=== PATIENT | male | born 1950 ===

== ENCOUNTER 2020-04-06 07:41 | Outpatient (REF) | payer MEDICARE, SELFPAY ==
--- NOTE | ~2020-04-06 | CT_ITS ---
EXAMINATION: CT HEAD WITHOUT CONTRAST. CT MASTOID CLINICAL INFORMATION: Tinnitus. COMPARISON: None. TECHNIQUE: 5 mm thin axial and reformatted 2 mm thin sagittal and coronal images of brain were obtained. Subsequently 0.6 mm thin axial and reformatted 0.6 mm thin sagittal and coronal images of brain were obtained. This CT examination was performed using dose optimization techniques as appropriate, variously including the following: *Automated exposure control *Adjustment of mA and/or kV according to patient size (this includes techniques or standardized protocols for targeted exams where dose is matched to indication/reason for exam; i.e. extremities or head) *Use of iterative reconstruction technique DLP: 1154 mGy-cm. FINDINGS: Brain: There is no evidence of acute intracranial hemorrhage or territorial infarction. No abnormal mass effect or midline shift is seen. Pleitez to white matter differentiation is well preserved. No extra-axial fluid collections are identified. The ventricles are normal in size. There is no abnormal attenuation within the brain parenchyma. There is a focal calcification in the pineal gland within normal limits. There is a midline round 5 mm calcification inferior to the fourth ventricle. The osseous structures and soft tissues are normal. The mastoid air cells and visualized portions of the paranasal sinuses are well aerated. Mastoid: There is normal aeration of bilateral mastoid sinuses without mucoperiosteal thickening or air-fluid levels. The bony cortex is intact. There is normal symmetry of middle ear and the middle ear ossicles without any soft tissue mass or fluid collection. Bilateral internal auditory canals, semicircular canals and the cochlear turns appears symmetrical. The bony cortex of the internal ear is normal. The roof of the epitympanum is normal. The bony canal of the internal auditory canal and the jugular veins are symmetrical and normal. There is mild reduction in bilateral TM joint spaces. No bony cortex abnormality or spurring is seen. Visualized bilateral parotid glands are symmetrical. CT/CT head/brain wo con IMPRESSION: No acute intracranial process seen. Nonspecific round midline calcification inferior to the fourth ventricle of undetermined etiology. Recommend MRI brain/IAC protocol for further evaluation. Unremarkable bilateral symmetrical temporal lobes and mastoid sinuses.
== END 2020-04-06 07:42 | disposition home or self-care (01) ==
LOC: HO.CT 07:41
PROVIDERS: PCP Internal Medicine; Visit Provider Internal Medicine
DX: H81.90 Unspecified disorder of vestibular function, unspecified ear (principal); H93.19 Tinnitus, unspecified ear
CPT/HCPCS: 70450; 70481

== ENCOUNTER 2020-04-17 09:04 | Outpatient (REF) | payer MEDICARE, SELFPAY ==
--- NOTE | ~2020-04-17 | MR_ITS ---
EXAMINATION: MR BRAIN WITHOUT AND WITH CONTRAST CLINICAL INFORMATION: Evaluate for brain lesion.. COMPARISON: CT from 04/06/2020. TECHNIQUE: Multiplanar, multisequential imaging was obtained without and with intravenous contrast. Intravenous contrast: Gadavist 8 mL. Slightly limited study with motion artifacts. FINDINGS: No diffusion abnormality is seen. No brain parenchymal signal abnormality is seen. The ventricles are normal in size. No mass effect or midline shift is evident. No extra-axial fluid collections are noted. The brainstem and cerebellum are normal. There is no abnormal parenchymal or leptomeningeal enhancement. The gradient acquisition is normal. The VII and VIII cranial nerve complexes are normal in course and caliber. No signal abnormality is visualized within the inner ear structures on the precontrast axial T1-weighted sequence. Fluid signal is preserved within the cochlea, semicircular canals, and vestibule on the high-resolution axial FIESTA sequence. No cerebellopontine angle lesion is noted. There is no abnormal labyrinthine or intracanalicular enhancement on postcontrast imaging. The craniovertebral junction, marrow signal, and midline structures are normal. No inferior fourth ventricular lesion evident at the site of presumed cord plexus calcification. The visualized portions of the major intracranial flow voids at the level of the [place] are preserved. The dural venous sinus flow voids are maintained. There is a mild amount of fluid in the right mastoid air cells. Mild mucosal thickening in the paranasal sinuses. MR/MR head/brain wo/w con IMPRESSION: No retrocochlear pathology. Normal MRI of the brain. Calcification described on the prior CT exam presumably represents normal choroid plexus calcification.
[2020-04-17 09:39] LABS: Blood Urea Nitrogen 14 mg/dL (9-16); Estimated Glomerular Filt Rate > 60
== END 2020-04-17 09:05 | disposition home or self-care (01) ==
LOC: HO.MRI 09:04
PROVIDERS: Visit Provider Psychiatry & Neurology Neurology
DX: G93.9 Disorder of brain, unspecified (principal)
CPT/HCPCS: 36415; 70553; 82565; 84520; A9585

== ENCOUNTER 2020-07-17 10:30 | Outpatient (REF) | payer MEDICARE, SELFPAY ==
--- NOTE | ~2020-07-17 | US_ITS ---
EXAMINATION: US SCROTUM CLINICAL INFORMATION: Follicular cyst of the skin and subcutaneous tissues. COMPARISON: None TECHNIQUE: A sonogram of the scrotum was performed assessing paulson-scale appearance and color Doppler flow. Spectral Doppler analysis of the arterial and venous flow were performed in the testes bilaterally. FINDINGS: RIGHT: Right testicle measures 5.2 x 2.5 x 4.4 cm, volume 30.0 mL. No focal testicular parenchymal lesions are visualized. Spectral Doppler analysis of the arterial and venous flow is normal in the right testis. Right epididymal head is normal in size. No right varicocele is seen. There is a small right hydrocele. Right epididymal Doppler flow is normal. LEFT: Left testicle measures 5.1 x 2.5 x 3.7 cm, volume 24.3 mL. No focal testicular parenchymal lesions are visualized. Spectral Doppler analysis of the arterial and venous flow is normal in the left testis. There is a 3.4 x 1.4 x 3 cm cyst in the body of the left epididymis. No left varicocele or hydrocele is seen. Left epididymal Doppler flow is normal. US/US scrotum IMPRESSION: 3.4 x 1.4 x 3 cm cyst in the body of the left epididymis. Small right hydrocele.
== END 2020-07-17 10:31 | disposition home or self-care (01) ==
LOC: HO.HMGCX 10:30
PROVIDERS: PCP Internal Medicine; Visit Provider Internal Medicine
DX: L72.9 Follicular cyst of the skin and subcutaneous tissue, unspecified (principal)
CPT/HCPCS: 76870

== ENCOUNTER 2020-10-29 07:12 | Outpatient (REF) | payer MEDICARE, SELFPAY ==
[2020-10-29 07:54] LABS: MANUAL DIFF FLAG NO
[2020-10-29 07:56] LABS: Basophils Percent Auto 0.7 % (0-2); Eosinophils Absolute Auto 0.2 X10*3/uL (0.0-0.4); Eosinophils Percent Auto 4.3 % (0-4); Hematocrit 42.2 % (42-52); Hemoglobin 14.1 g/dl (14.0-18.0); Imm Gran Abs Auto 0.01 X10*3/uL (0.00-0.03); Imm Gran Pct Auto 0.2 % (0.0-0.4); Lymphocytes Absolute Auto 1.3 X10*3/uL (1.2-4.9); Lymphocytes Percent Auto 29.2 % (20-40); Mean Corpuscular HGB Conc 33.4 g/dl (31.0-36.0); Mean Corpuscular Hemoglobin 29.9 pg (27.0-33.0); Mean Corpuscular Volume 89.6 fL (80-98); Monocytes Absolute Auto 0.5 X10*3/uL (0.1-1.2); Monocytes Percent Auto 11.5 % (2-11); Neutrophils Absolute Auto 2.4 X10*3/uL (2.0-8.3); Neutrophils Percent Auto 54.1 % (45-73); Platelet Count 195 X10*3/uL (160-400); Red Blood Count 4.71 X10*6/uL (4.60-5.80); Red Cell Distribution Width 11.8 % (11.0-16.0); White Blood Count 4.5 X10*3/uL (4.8-10.8)
[2020-10-29 08:17] LABS: Alanine Aminotransferase 18 U/L (0-40); Albumin Level 3.9 g/dL (3.5-5.0); Alkaline Phosphatase 61 U/L (39-117); Anion Gap 10 (12-20); Aspartate Amino Transferase 20 U/L (5-37); Bilirubin Total 1.6 mg/dL (0.0-1.0); Blood Urea Nitrogen 16 mg/dL (9-16); Carbon Dioxide 29 mmol/L (22-29); Chloride 106 mmol/L (96-108); Cholesterol 183 mg/dL; Estimated Glomerular Filt Rate > 60; Glucose Fasting 97 mg/dL (60-99); HDL Cholesterol 46 mg/dL; LDL Cholesterol Calculated 125 mg/dl; Potassium 4.3 mmol/L (3.3-5.1); Sodium 141 mmol/L (135-145); Total Protein 6.5 g/dL (6.5-8.0); Triglycerides 63 mg/dL
[2020-10-29 08:38] LABS: Prostate Specific Antigen Scr 0.82 ng/mL (<0.05-4.0)
== END 2020-10-29 07:13 | disposition home or self-care (01) ==
LOC: HO.LAB 07:12
PROVIDERS: PCP Internal Medicine; Visit Provider Internal Medicine
DX: Z00.00 Encounter for general adult medical examination without abnormal findings (principal); Z12.5 Encounter for screening for malignant neoplasm of prostate; E11.9 Type 2 diabetes mellitus without complications; R35.1 Nocturia
CPT/HCPCS: 36415; 80053; 80061; 84153; 85025

== ENCOUNTER → 2020-12-25 10:27 | Outpatient (BNVA) | payer MEDICARE, SELFPAY | PROVIDERS: PCP Internal Medicine; Visit Provider Urology | DX: L72.9 Follicular cyst of the skin and subcutaneous tissue, unspecified (principal) | CPT/HCPCS: 99202 ==

== ENCOUNTER 2021-02-18 09:03 | Outpatient (REF) | payer MEDICARE, SELFPAY | END 2021-02-18 09:04 | disposition home or self-care (01) | LOC: HO.LAB 09:03 | PROVIDERS: Visit Provider Internal Medicine | DX: Z20.822 Contact with and (suspected) exposure to COVID-19 (principal) | CPT/HCPCS: C9803; U0003; U0005 ==

== ENCOUNTER → 2021-12-23 08:23 | Outpatient (BNVA) | payer MEDICARE, SELFPAY | PROVIDERS: PCP Internal Medicine; Visit Provider Urology | DX: N40.1 Benign prostatic hyperplasia with lower urinary tract symptoms (principal); R35.1 Nocturia | CPT/HCPCS: 99212 ==

== ENCOUNTER 2022-07-27 07:03 | Outpatient (REF) | payer MEDICARE, SELFPAY ==
[2022-07-27 07:12] LABS: MANUAL DIFF FLAG NO
[2022-07-27 07:50] LABS: Basophils Percent Auto 0.4 % (0-2); Eosinophils Absolute Auto 0.2 X10*3/uL (0.0-0.4); Eosinophils Percent Auto 3.5 % (0-4); Hematocrit 45.1 % (42.0-52.0); Hemoglobin 15.1 g/dl (14.0-18.0); Imm Gran Abs Auto 0.01 X10*3/uL (0.00-0.03); Imm Gran Pct Auto 0.2 % (0.0-0.4); Lymphocytes Absolute Auto 1.3 X10*3/uL (1.2-4.9); Lymphocytes Percent Auto 27.2 % (20-40); Mean Corpuscular HGB Conc 33.5 g/dl (31.0-36.0); Mean Corpuscular Hemoglobin 30.4 pg (27.0-33.0); Mean Corpuscular Volume 90.9 fL (80.0-98.0); Mean Platelet Volume 11.1 fL (9.4-12.4); Monocytes Absolute Auto 0.6 X10*3/uL (0.1-1.2); Neutrophils Absolute Auto 2.7 x10*3/uL (2.0-8.3); Neutrophils Percent Auto 55.7 % (45-73); Platelet Count 192 X10*3/uL (160-400); Red Blood Count 4.96 X10*6/uL (4.60-5.80); Red Cell Distribution Width 11.9 % (11.0-16.0); White Blood Count 4.9 X10*3/uL (4.8-10.8)
[2022-07-27 08:25] LABS: Alanine Aminotransferase 21 U/L (0-40); Alkaline Phosphatase 50 U/L (39-117); Anion Gap 9 (12-20); Aspartate Amino Transferase 22 U/L (5-37); Bilirubin Total 1.4 mg/dL (0.0-1.0); Blood Urea Nitrogen 13 mg/dL (9-16); Calcium 9.1 mg/dL (8.4-10.2); Carbon Dioxide 33 mmol/L (22-29); Chloride 105 mmol/L (96-108); Cholesterol 183 mg/dL; Estimated Glomerular Filt Rate > 60; Glucose Random 93 mg/dL (60-115); HDL Cholesterol 42 mg/dL; LDL Cholesterol Calculated 130 mg/dl; Potassium 4.5 mmol/L (3.3-5.1); Sodium 142 mmol/L (135-145); Total Protein 6.6 g/dL (6.5-8.0); Triglycerides 56 mg/dL
[2022-07-27 08:41] LABS: Prostate Specific Antigen Scr 0.86 ng/mL (<0.05-4.0)
== END 2022-07-27 07:04 | disposition home or self-care (01) ==
LOC: HO.LAB 07:03
PROVIDERS: PCP Internal Medicine; Visit Provider Internal Medicine
DX: Z00.00 Encounter for general adult medical examination without abnormal findings (principal); Z12.5 Encounter for screening for malignant neoplasm of prostate; Z13.89 Encounter for screening for other disorder; Z71.89 Other specified counseling; Z86.010 Personal history of colon polyps; E78.00 Pure hypercholesterolemia, unspecified
CPT/HCPCS: 36415; 80053; 80061; 84153; 85025

== ENCOUNTER 2022-10-12 08:26 | Outpatient (AMB) | payer MEDICARE, SELFPAY ==
--- NOTE | 2022-10-12 08:34 | A.OFFVIS_ITS ---
Intake Vital Signs 10/12/22 08:39 Height 6 ft Weight 170 lb BMI 23.1 BP 130/78 Blood Pressure Location Lt brachial Position Sitting Pulse 55 Intake Visit Reasons: colonoscopy screening Intake Note: Patient 3rd pre Colonoscopy screening. 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 Katz 2017 2017- tubulovillios- rectal/ adenoma and 3 tubular adenoma No GI or general complaints He is retired, he has a normal bowel pattern. He has very healthy diet. No cardiac or respiratory issues No nausea, vomiting, hematemesis, hematochezia abdominal pain fever or chills PFSH Surgical History Hx of colonoscopy No history of previous surgery Family History Mother No problems noted. Father No problems noted. Social History Housing: House Alcohol intake: current Alcohol intake frequency: 0-2 drinks per day Patient Tobacco Use Status: Never used Tobacco e-Cigarette/Vaping Use: Never Used Second Hand Smoke Exposure: No service: No Current occupational status: retired Review of Systems Const All systems reviewed & are unremarkable except as noted in HPI and below Card Denies chest pain and Denies dyspnea Resp Denies dyspnea GI Denies abdominal pain, Denies hematochezia and Denies change in bowel habits Physical Exam Vital Signs: Last Vital Signs Pulse 55 10/12/22 08:39 BP 130/78 10/12/22 08:39 BMI result Body Mass Index 23.1 Const General: cooperative, healthy appearing, comfortable and no acute distress Orientation/consciousness: patient oriented x3 Limitations: no limitations Eyes Sclerae: sclerae normal Resp Effort & Inspection: normal respiratory effort and able to speak in complete sentences Auscultation: clear to auscultation bilaterally, no rales, no rhonchi and no wheezes Cardio Rate: regular rate Rhythm: regular rhythm Heart sounds: S1 normal heart sound present and S2 normal heart sound present GI Palpation (GI): Soft to palpation and nontender Auscultation: normal bowel sounds Skin General skin exam: no rashes or lesions noted Neuro General: patient oriented x3 Extrem General: Yes full ROM Psych Appearance: grossly normal and well kempt Mental Status: mental status grossly normal Speech and movement: Normal speech and movement present and Clear speech present Affect: normal affect Attitude: cooperative Thought process: Normal thought process present Thought content: Normal thought content present Insight: Good insight present (Psych) Judgement: Good judgement present (Psych) Assessment & Plan Assessment & Plan (1) Cecal polyp: Comment: 2018 Code(s): K63.5 - Polyp of colon Plan: Polyp surveillance colonoscopy (2) Tubulovillous adenoma polyp of rectum: Comment: Reviewed previous colonoscopy/pathology 2018 discusswd polyp, [id number] recommendation Code(s): D12.8 - Benign neoplasm of rectum Plan MG - polyp surveillance colonoscopy 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 20 mg (4 x 5 mg) PO ONCE 1 day 4 tabs 0RF colonoscopy prep Z12.11 - Encounter for screening for malignant neoplasm of colon polyethylene glycol 3350 (Miralax) Take as directed by mouth the day before your procedure. 238 grams PO ONCE 1 day PRN 238 grams 0RF laxative effect Patient Instructions: Pleasant healthy, 71-year-old Gent personal history of colon polyps, he has no GI or general complaints takes no medications MiraLax Gatorade split prep, instructions given Reviewed procedure, indications, need for escorted due to anesthesia Encouraged to call questions or concern Appreciate the opportunity assist in the care the patient Coding Level of Care Code New Pt Level 3 (27627) Diagnoses Cecal polyp K63.5 Tubulovillous adenoma polyp of rectum D12.8 Time Spent (min) 30
[2022-10-12 08:39] VITALS: BP 130/78; PULSE 55; BMI 23.1
== END 2022-10-12 09:58 | disposition home or self-care (01) ==
PROVIDERS: PCP Internal Medicine; Visit Provider Physician Assistant
DX: K63.5 Polyp of colon (principal)
CPT/HCPCS: 99203

== ENCOUNTER → 2022-10-12 08:26 | Outpatient (BNVA) | payer MEDICARE, SELFPAY | PROVIDERS: PCP Internal Medicine; Visit Provider Physician Assistant | DX: Z87.19 Personal history of other diseases of the digestive system (principal); Z86.010 Personal history of colon polyps | CPT/HCPCS: 99202 ==

== ENCOUNTER 2023-01-30 08:57 | Day surgery (SDC) | payer MEDICARE, SELFPAY ==
--- NOTE | 2023-01-27 12:11 | HO.ANESPROP2 ---
Documented by User: Yajaira Marcial NP 01/27/23 12:12 HPI - Anesthesia Eval Consult details Narrative: 72yo M for Colonoscopy [facility] Active Problems Active Problems: All Active Problems (Updated 10/12/22 @ 09:24 by Kym Bonner PA-C) Tubulovillous adenoma polyp of rectum (Acute) Cecal polyp (Acute) Encounter for screening colonoscopy (Acute) Nocturia associated with benign prostatic hyperplasia (Acute) Physical exam (Acute) Skin lesion (Acute) Scrotal cyst (Acute) Headache (Acute) Sinusitis (Acute) Labyrinthine disorder (Acute) Family History Family History Mother No problems noted. Father No problems noted. Surgical History Surgical History Hx of colonoscopy No history of previous surgery Social History Social History Housing: House Alcohol intake: current Alcohol intake frequency: 0-2 drinks per day Patient Tobacco Use Status: Never used Tobacco e-Cigarette/Vaping Use: Never Used Second Hand Smoke Exposure: No Advance Directives: No Advance Directives Information Provided: Yes service: No Current occupational status: retired Meds Allergies Allergy/AdvReac Type Severity Reaction Status Date / Time latex [LATEX] Allergy Unknown BOTHERS PT Verified 10/12/22 08:34 WHEN EXPOSED A LOT Assessment and Plan Assessment Anesthesia Assessment: Chart Reviewed Documented by User: Solange Ferguson MD 01/30/23 10:07 [facility] Family History Family History Mother No problems noted. Father No problems noted. Family history of problems with anesthesia: No Surgical History Surgical History Hx of colonoscopy No history of previous surgery History of Problems with Anesthesia: No Social History Social History Housing: House Alcohol intake: current Alcohol intake frequency: 0-2 drinks per day Patient Tobacco Use Status: Never used Tobacco e-Cigarette/Vaping Use: Never Used Second Hand Smoke Exposure: No Advance Directives: No Advance Directives Information Provided: Yes service: No Current occupational status: retired Meds Allergies Allergy/AdvReac Type Severity Reaction Status Date / Time latex [LATEX] Allergy Unknown BOTHERS PT Verified 10/12/22 08:34 WHEN EXPOSED A LOT Exam Airway Mallampati Class: II TM Dist: >3cm Neck ROM: Full Heart: rrr Lungs: cta Assessment and Plan Assessment Anesthesia Assessment: Anesthesia Plan Discussed Final Anesthetic Review Family History of Problems with Anesthesia: No History of Problems with Anesthesia: No NPO: Yes ASA Class: II Final Preanesthetic Review: No Changes in Pt Med Stat, Meds/Allgs Chart Reviewed and Consent Obtained/Reviewed Patient Risk: Intermediate Procedure Risk: Intermediate Anesthetic Plan Anesthetic Plan: MAC: Disposition: Standard PACU
--- NOTE | 2023-01-30 09:23 | P.HPSUR_ITS ---
Pre-Procedural Eval Section A Date of Service: 01/30/23 The patient is an INPATIENT: No The History & Physical has been completed within 30 days and I have reviewed it.: No Section B Chief Complaint: Surveillance for colon polyps Relevant Family History (Specify if Yes): No Relevant Social History: None Present Medications: see Short Stay Collaborative assessment Medical History: Significant History (Benign prostatic hypertrophy) History of Previous Operations: Relevant previous surgery/procedure and date(s) (History of colonoscopy) Allergies: Allergies Allergy/AdvReac Type Severity Reaction Status Date / Time latex [LATEX] Allergy Unknown BOTHERS PT Verified 10/12/22 08:34 WHEN EXPOSED A LOT Review of Systems Sugical H&P ROS: Negative: Constitution, Cardiovascular, Respiratory and Ga strointestinal Exam Surgical H&P Exam: Normal: Heart, Normal: Lungs, Normal: Extremities and Normal: Abdomen Plan Diagnosis/Plan: Unchanged I have reviewed the history and physical and performed a pertinent physical examination on my patient. No changes have occurred unless specified. Time Spent With Patient Time: Total time managing care of this patient today ____ minutes.
[2023-01-30 10:05] VITALS: BP 148/81; PULSE 61; RESP 16; TEMP 36.8; O2SAT 96; BMI 22.4
[2023-01-30 11:02] VITALS: BP 115/70; PULSE 54; RESP 16; TEMP 36.2; O2SAT 99
--- NOTE | 2023-01-30 11:02 | W.PM.OPN ---
Operative Note Operative Note Date of Service: 01/30/23 Narrative: COLONOSCOPY TILL CECUM WITH BIOPSIES, SNARE POLYPECTOMY, SUBMUCOSAL INJECTION AND HEMOCLIP PLACEMENT Pre-op diagnosis: Surveillance for colon polyps Post-op diagnosis:? Colon polyps, hemorrhoids Endoscopist:? Brianne Lombardo MD Anesthesia:?MAC Consent: Indications for the procedure and potential complications of bleeding, perforation, reaction to medications and missed diagnosis were discussed with the patient and informed consent was obtained. Instrument: Olympus CF H 190 L variable stiffness adult colonoscope Monitoring: Vital signs and clinical assessment, intermittent blood pressure monitoring, continuous EKG monitoring, Pulse oximetry and Carbon Dioxide monitoring were done throughout the procedure. Please see anesthesia flowsheet. Colon withdrawl time was 30 minutes. Procedure: The patient was placed in the left lateral decubitis position and pre-procedure medications were administered. After a digital rectal examination of the ano-rectum, the video colonoscope was inserted into the rectum and advanced through the colon to the cecum. The colonoscope was slowly withdrawn in a retrograde panoramic fashion and the colon mucosa was carefully examined including a retroflexed view of the rectum. Findings and interventions are described below. Procedure Difficulty: Colon was long and tortuous and there was some loop formation Findings: Terminal Ileum: Not evaluated Cecum: A 12-15 mm flat polyp in the cecum - raised with 5 cc of Eleview and removed with a hot snare. Polypectomy site was closed with 1 hemoclip Ascending Colon: A 5-6 mm sessile polyp in the proximal AC (near the ICV) removed with a hot snare. A 7-8 mm sessile polyp in the proximal AC (near the ICV) raised with 2 cc of Eleview and removed with a hot snare. Polypectomy site was closed with 1 hemoclip. A 12-15 mm sessile polyp in the proximal AC (near the ICV) raised with 4 cc of Eleview and removed with a hot snare. A 4-5 mm sessile polyp in the mid AC - removed with a cold biopsy Transverse Colon: Two 6-7 mm sessile polyps - removed with a cold biopsy and a hot snare. Descending Colon: Normal Sigmoid Colon: Normal Rectum: Normal Ano-rectum: Moderate internal hemorrhoids Colon preparation: Good after copious irrigation and fair in the rectum due to undigested vegetable matter which could not be suctioned. Impression and Post Procedure Diagnosis: Colonoscopy Findings: Five small and two medium sized polyps removed Moderate hemorrhoids on retroflexed exam. Plan: Await pathology results Patient has an appointment on 02/13/23 in the GI Clinic with LIS Mckinney. Repeat Colonoscopy interval based on path results - in 2 years if polyps are adenomatous and 5 years if polyps are hyperplastic (due to a hx of adenomatous colon polyps). Above findings were reviewed with the patient and colon polyps handout was given in the discharge area.
[2023-01-30 11:17] VITALS: BP 122/82; PULSE 52; RESP 18; TEMP 36.3; O2SAT 97
== END 2023-01-30 11:50 | disposition home or self-care (01) ==
PROVIDERS: PCP Internal Medicine; Visit Provider Internal Medicine Gastroenterology
PROC: 0DJD8ZZ Inspection of Lower Intestinal Tract, Via Natural or Artificial Opening Endoscopic (ICD-10-PCS; CPT 45378; principal; 2023-01-30 10:10)
DX: Z12.11 Encounter for screening for malignant neoplasm of colon (principal); Z86.010 Personal history of colon polyps; D12.0 Benign neoplasm of cecum; D12.2 Benign neoplasm of ascending colon; D12.3 Benign neoplasm of transverse colon; K64.8 Other hemorrhoids; Z91.040 Latex allergy status
CPT/HCPCS: 45385; 45380; 45381; 88305; J2704

== ENCOUNTER → 2023-01-30 08:57 | Outpatient (BNV) | payer MEDICARE, SELFPAY | PROVIDERS: PCP Internal Medicine; Visit Provider Internal Medicine Gastroenterology | DX: Z12.11 Encounter for screening for malignant neoplasm of colon (principal); Z86.010 Personal history of colon polyps; D12.4 Benign neoplasm of descending colon; D12.3 Benign neoplasm of transverse colon | CPT/HCPCS: 45380; 45381; 45385 ==

== ENCOUNTER 2023-02-07 15:24 | Outpatient (AMB) | payer MEDICARE, SELFPAY ==
--- NOTE | 2023-02-07 15:38 | A.OFFVIS_ITS ---
Intake Intake Visit Reasons: 1Y PVR Intake Note: Patient presents today for a 1 year follow-up on Left-sided epididymal cyst: Meds- None Allergies to Antibiotic- No Known Allergies Blood Thinner- None Barmaid Required: No Accompanied by: Self / Same As Patient Allergies latex [LATEX] Allergy (Unknown, Verified 02/07/23 15:46) BOTHERS PT WHEN EXPOSED A LOT Medication List - Last Reconciled 02/07/23 by Esa Mae MD finasteride 5 mg PO DAILY 90 days HPI HPI Comments History of Present Illness Details Syd is a pleasant male. He is a patient of Dr. Dillard. He is seen for the following urologic conditions - epididymal cyst - nocturia Improvement with alpha-isaiah Six month follow-up Lower urinary tract symptoms Initial presentation with nocturia 1-2, weakness of stream Improvement with tamsulosin Continue therapy PSA 11/17 0.8 Epididymal cyst Left-sided epididymal cyst Approximately 2-3 cm on exam Minimal bother currently Reassurance provided regarding natural history Review in 12 months [facility] Surgical History (Updated 02/03/23 @ 11:03 by Rosa Sears) Hx of colonoscopy No history of previous surgery Family History Mother No problems noted. Father No problems noted. Social History Housing: House Alcohol intake: current Alcohol intake frequency: 0-2 drinks per day Patient Tobacco Use Status: Never used Tobacco e-Cigarette/Vaping Use: Never Used Second Hand Smoke Exposure: No service: No Current occupational status: retired Review of Systems Const Denies chills and Denies fever(s) Card Reports no additional complaints and Denies syncope Resp Denies cough GI Denies abdominal pain and Denies heartburn Reports as per HPI and Denies change in libido Neuro Denies syncope Psych Denies change in libido Endo Denies change in libido Physical Exam Const General: cooperative, healthy appearing, comfortable and no acute distress Orientation/consciousness: patient oriented x3 HEENT Face and sinus: Yes normal facial exam Mouth: moist mucous membranes Neck Neck: Yes normal visual inspection, Yes full ROM and Yes trachea midline Chest Chest palpation & inspection: normal inspection of the chest Resp Effort & Inspection: normal respiratory effort, able to speak in complete sentences and no respiratory distress GI Inspection: Yes normal to inspection Back/Spine/Pelvis Cervical Spine: normal cervical lordosis Thoracic/Lumbar Spine: thoracic and lumbar spine normal to inspection Skin General skin exam: no rashes or lesions noted Neuro General: patient oriented x3, gait normal, tone normal and moves all extremities Extrem General: Yes normal to inspection and Yes capillary refill normal Assessment & Plan Assessment & Plan (1) Nocturia associated with benign prostatic hyperplasia: Code(s): N40.1 - Benign prostatic hyperplasia with lower urinary tract symptoms; R35.1 - Nocturia Plan Finasteride Medications: New finasteride 5 mg PO DAILY 90 tabs 1RF 90 days N13.8 - Other obstructive and reflux uropathy, N40.1 - Benign prostatic hyperplasia with lower urinary tract symptoms, R33.9 - Retention of urine, unspecified, R35.1 - Nocturia Patient Instructions: Imaging studies, laboratory and physical exam results were discussed and reviewed in detail. No major barriers to patient understanding were identified. An opportunity to ask questions regarding the treatment plan was provided. All questions were answered. The patient expressed understanding and agreement with the above treatment plan. The patient is aware they should contact our office by phone for worsening of their current condition or the appearance of new urologic symptoms. Compliance is encouraged with any medications and followup testing that is ordered. It is a privilege to participate in the urologic care of your patient. If you have any questions or concerns regarding treatment for the above conditions, or other urologic issues, please do not hesitate to contact me. The office telephone contact is [phone]. This note is constructed using voice recognition software. While every effort has been made to ensure accuracy dental assistant medical assistant errors may have been included. Yours sincerely, Dr Esa Mae MD, [facility] - Urology Providers of Expert, Compassionate Care for the Genitourinary System Coding Level of Care Code Est Pt Level 3 (33433) Diagnoses Nocturia associated with benign prostatic hyperplasia N40.1; R35.1
== END 2023-02-07 16:31 | disposition home or self-care (01) ==
PROVIDERS: Visit Provider Urology
DX: N40.1 Benign prostatic hyperplasia with lower urinary tract symptoms (principal); R35.1 Nocturia
CPT/HCPCS: 99213

== ENCOUNTER → 2023-02-07 15:24 | Outpatient (BNVA) | payer SELFPAY | PROVIDERS: Visit Provider Urology | DX: N40.1 Benign prostatic hyperplasia with lower urinary tract symptoms (principal); R35.1 Nocturia; N50.3 Cyst of epididymis | CPT/HCPCS: 99212 ==

== ENCOUNTER 2023-02-13 08:57 | Outpatient (AMB) | payer MEDICARE, SELFPAY ==
--- NOTE | 2023-02-13 09:07 | MHC.OFFVIS ---
Intake Vital Signs 02/13/23 09:14 Height 6 ft Weight 165 lb BMI 22.4 BP 126/74 Blood Pressure Location Lt brachial Position Sitting Pulse 64 Intake Visit Reasons: S/p colon Grupo Intake Note: Patient follow for Colonoscopy results. 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 Accompanied by: Self / Same As Patient Allergies latex [LATEX] Allergy (Unknown, Verified 02/07/23 15:46) BOTHERS PT WHEN EXPOSED A LOT HPI HPI Comments History of Present Illness Details A 72 y/o male f/u after colonoscopy- he expressed his dissatisfaction with written colon prep instructions that he had received-though a he was able to follow-up prep to have successful colonoscopy He also expressed dissatisfaction as he was not seen promptly at his visit time-here to day as well as when he was seen by Urology He was not appreciative of questions asked at [facility]-or questions asked by MA He has no GI or general complaints Reviewed procedure report as well as pathology and recommendations-he expresses his dissatisfaction with having to repeat colonoscopy in 2 years as recommended by MD Discussed previous colonoscopy as well explaining the importance of follow through as to avoid missing malignancy No complaints of nausea, vomiting, abdominal pain, hematemesis, hematochezia fever or chills PFSH Medical History (Updated 02/13/23 @ 11:36 by Kym Bonner PA-C) Multiple adenomatous polyps Surgical History Hx of colonoscopy No history of previous surgery Family History Mother No problems noted. Father No problems noted. Social History Housing: House Alcohol intake: current Alcohol intake frequency: 0-2 drinks per day Patient Tobacco Use Status: Never used Tobacco e-Cigarette/Vaping Use: Never Used Second Hand Smoke Exposure: No service: No Current occupational status: retired Review of Systems Const All systems reviewed & are unremarkable except as noted in HPI and below Physical Exam Vital Signs: Last Vital Signs Pulse 64 02/13/23 09:14 BP 126/74 02/13/23 09:14 BMI result Body Mass Index 22.4 Const General: healthy appearing, comfortable and no acute distress Orientation/consciousness: patient oriented x3 Limitations: no limitations Eyes Sclerae: sclerae normal Resp Effort & Inspection: normal respiratory effort and able to speak in complete sentences Skin General skin exam: no rashes or lesions noted Neuro General: patient oriented x3 Extrem General: Yes full ROM Psych Appearance: grossly normal and well kempt Speech and movement: Clear speech present Affect: Hostile affect present Results Reviewed Results Reviewed: Findings: Terminal Ileum: Not evaluated Cecum: A 12-15 mm flat polyp in the cecum - raised with 5 cc of Eleview and removed with a hot snare. Polypectomy site was closed with 1 hemoclip Ascending Colon: A 5-6 mm sessile polyp in the proximal AC (near the ICV) removed with a hot snare. A 7-8 mm sessile polyp in the proximal AC (near the ICV) raised with 2 cc of Eleview and removed with a hot snare. Polypectomy site was closed with 1 hemoclip. A 12-15 mm sessile polyp in the proximal AC (near the ICV) raised with 4 cc of Eleview and removed with a hot snare. A 4-5 mm sessile polyp in the mid AC - removed with a cold biopsy Transverse Colon: Two 6-7 mm sessile polyps - removed with a cold biopsy and a hot snare. Descending Colon: Normal Sigmoid Colon: Normal Rectum: Normal Ano-rectum: Moderate internal hemorrhoids Colon preparation: Good after copious irrigation and fair in the rectum due to undigested vegetable matter which could not be suctioned. Impression and Post Procedure Diagnosis: Colonoscopy Findings: Five small and two medium sized polyps removed Moderate hemorrhoids on retroflexed exam. Plan: Await pathology results Patient has an appointment on 02/13/23 in the GI Clinic with LIS Mckinney. Repeat Colonoscopy interval based on path results - in 2 years if polyps are adenomatous and 5 years if polyps are hyperplastic (due to a hx of adenomatous colon polyps). Above findings were reviewed with the patient and colon polyps handout was given in the discharge area. Name: Syd Enrique Age/Sex: 72/M Attending: Brianne Lombardo MD : 1950 Submitted by: Brianne Lombardo MD Copies to: Kyara Trevino MD MR #: [id number] Status: [facility] Collected: 01/30/23 Location: [facility] Received: 01/30/23 Diagnosis A. Colon, ascending, polypectomies: - Tubular adenoma; negative for high-grade dysplasia or carcinoma. - Sessile serrated lesion/polyp; negative for cytologic dysplasia. - Colonic mucosa with mild surface hyperplastic changes. B. Cecum, polypectomy: Sessile serrated lesion/polyp; negative for cytologic dysplasia. C. Colon, transverse, polypectomies: Tubular adenomata (2); negative for high-grade dysplasia or carcinoma. Clinical History Pre-Op Dx: Surveillance of polyps Post-Op Dx: Colon polyps, hemorrhoids Microscopic Description A-C. Microscopic sections reviewed You should undergo a colonoscopy again in 2 years. Assessment & Plan Assessment & Plan (1) Multiple adenomatous polyps: Comment: Colon polyps 2018, colon polyps 2022 Code(s): D36.9 - Benign neoplasm, unspecified site Plan: Reinforce importance follow through as recommended by MD Plan Repeat colonoscopy in 2 years-( he is very reluctant)-reenforced- Patient Instructions: 72-year-old male personal history of colon polyps follows up after recent colonoscopy to was again reveal multiple colon polyps. He a is dissatisfied with recommendations, reviewed pathology, reinforced importance of follow through-repeat asymptomatic colonoscopy 2 years. Patient reassured that his health was a priority- Reminder will be placed- Encouraged to call with any questions or concerns Coding Level of Care Code Est Pt Level 3 (44545) Diagnoses Multiple adenomatous polyps D36.9 Time Spent (min) 18
[2023-02-13 09:14] VITALS: BP 126/74; PULSE 64; BMI 22.4
== END 2023-02-13 10:07 | disposition home or self-care (01) ==
PROVIDERS: PCP Internal Medicine; Visit Provider Physician Assistant
DX: D36.9 Benign neoplasm, unspecified site (principal)
CPT/HCPCS: 99213

== ENCOUNTER → 2023-02-13 08:57 | Outpatient (BNVA) | payer MEDICARE, SELFPAY | PROVIDERS: PCP Internal Medicine; Visit Provider Physician Assistant | DX: D36.9 Benign neoplasm, unspecified site (principal) | CPT/HCPCS: 99212 ==

== ENCOUNTER 2023-08-08 08:38 | Outpatient (AMB) | payer MEDICARE, SELFPAY ==
--- NOTE | 2023-08-08 08:53 | MHC.OFFVIS ---
Intake Visit Reasons: 6M Med Review(Finasteride) Intake Note: Patient is Present for Follow Up Med Review Urology Medication: Finasteride Antibiotic Allergies:None Blood Thinners: None Patient states that Finasteride has not worked well with him, He only took the Finasteride for 10 days. Patient reported that while on Finasteride it caused his Libido to decrease and he was not able to maintain erection while on Finasteride so he stopped. He would like to discuss other medication options. Patient also reports that in the past Dr Mae had him on a medication but caused him to be dizzy and he works with machine and it will effect him Allergies tamsulosin Allergy (Severe, Verified 08/08/23 09:01) Dizziness latex [LATEX] Allergy (Unknown, Verified 08/08/23 09:01) BOTHERS PT WHEN EXPOSED A LOT HPI Comments Details: Syd is a pleasant male. He is a patient of Dr. Dillard. He is seen for the following urologic conditions - epididymal cyst - nocturia Improvement with alpha-isaiah Six month follow-up Finasteride had side effects Review in 6 months Lower urinary tract symptoms Initial presentation with nocturia 1-2, weakness of stream Improvement with tamsulosin Continue therapy PSA 11/17 0.8, 07/19 0.9 Epididymal cyst Left-sided epididymal cyst Approximately 2-3 cm on exam Minimal bother currently Reassurance provided regarding natural history Review in 12 months [facility] Medical History Multiple adenomatous polyps Surgical History Hx of colonoscopy No history of previous surgery Family History Mother No problems noted. Father No problems noted. Social History Housing: House Alcohol intake: current Alcohol intake frequency: 0-2 drinks per day Patient Tobacco Use Status: Never used Tobacco e-Cigarette/Vaping Use: Never Used Second Hand Smoke Exposure: No service: No Current occupational status: retired Review of Systems Const Denies chills and Denies fever(s) Card Reports no additional complaints and Denies syncope Resp Denies cough GI Denies abdominal pain and Denies heartburn Reports as per HPI and Denies change in libido Neuro Denies syncope Psych Denies change in libido Endo Denies change in libido Physical Exam Const General: cooperative, healthy appearing, comfortable and no acute distress Orientation/consciousness: patient oriented x3 HEENT Face and sinus: Yes normal facial exam Mouth: moist mucous membranes Neck Neck: Yes normal visual inspection, Yes full ROM and Yes trachea midline Chest Chest palpation & inspection: normal inspection of the chest Resp Effort & Inspection: normal respiratory effort, able to speak in complete sentences and no respiratory distress GI Inspection: Yes normal to inspection Back/Spine/Pelvis Cervical Spine: normal cervical lordosis Thoracic/Lumbar Spine: thoracic and lumbar spine normal to inspection Skin General skin exam: no rashes or lesions noted Neuro General: patient oriented x3, gait normal, tone normal and moves all extremities Extrem General: Yes normal to inspection and Yes capillary refill normal Assessment & Plan Assessment & Plan (1) Nocturia associated with benign prostatic hyperplasia: Code(s): N40.1 - Benign prostatic hyperplasia with lower urinary tract symptoms; R35.1 - Nocturia Category: Medical Plan 6m f/u office Patient Instructions: Imaging studies, laboratory and physical exam results were discussed and reviewed in detail. No major barriers to patient understanding were identified. An opportunity to ask questions regarding the treatment plan was provided. All questions were answered. The patient expressed understanding and agreement with the above treatment plan. The patient is aware they should contact our office by phone for worsening of their current condition or the appearance of new urologic symptoms. Compliance is encouraged with any medications and followup testing that is ordered. It is a privilege to participate in the urologic care of your patient. If you have any questions or concerns regarding treatment for the above conditions, or other urologic issues, please do not hesitate to contact me. The office telephone contact is [phone]. This note is constructed using voice recognition software. While every effort has been made to ensure accuracy special procedures nurse errors may have been included. Yours sincerely, Dr Esa Mae MD, [facility] - Urology Providers of Expert, Compassionate Care for the Genitourinary System Coding Level of Care Code Est Pt Level 3 (88651) Diagnoses Nocturia associated with benign prostatic hyperplasia N40.1; R35.1
== END 2023-08-08 09:32 | disposition home or self-care (01) ==
PROVIDERS: PCP Internal Medicine; Visit Provider Urology
DX: N40.1 Benign prostatic hyperplasia with lower urinary tract symptoms (principal); R35.1 Nocturia
CPT/HCPCS: 99213

== ENCOUNTER → 2023-08-08 08:38 | Outpatient (BNVA) | payer MEDICARE, SELFPAY | PROVIDERS: PCP Internal Medicine; Visit Provider Urology | DX: N40.1 Benign prostatic hyperplasia with lower urinary tract symptoms (principal); R35.1 Nocturia | CPT/HCPCS: 99212 ==

== ENCOUNTER 2023-09-01 08:03 | Outpatient (AMB) | payer MEDICARE, SELFPAY ==
--- NOTE | 2023-09-01 08:04 | MHC.OFFWIV ---
Intake Vital Signs 09/01/23 08:08 Height 6 ft Weight 173 lb BMI 23.5 BP 118/64 Blood Pressure Location Rt brachial Position Sitting Pulse 55 Pulse Source Pulse Oximeter Temp 98.0 F Temp Source Oral Pulse Oximetry (%) 97 Oxygen Delivery Method Room Air Intake Visit Reasons: EP shoulder pain more rt Intake Note: Pt here c/o bilateral shoulder pain. More on RT side. Started couple months ago Patient Tobacco Use Status: Never used Tobacco Allergies tamsulosin Allergy (Severe, Verified 09/01/23 08:04) Dizziness latex [LATEX] Allergy (Unknown, Verified 09/01/23 08:04) BOTHERS PT WHEN EXPOSED A LOT Do you need a note to return to daycare/school/sports/work: No HPI HPI Comments History of Present Illness Details 72 y/o male patient who present to walk in clinic with c/o right shoulder pain x 2 months. Rates the pain at 1-2/10 on scale. Denies injury or trauma. Reports activities make the pain worse. He does lots of swimming daily. [facility] Medical History Multiple adenomatous polyps Surgical History Hx of colonoscopy No history of previous surgery Family History Mother No problems noted. Father No problems noted. Social History Housing: House Alcohol intake: current Alcohol intake frequency: 0-2 drinks per day Patient Tobacco Use Status: Never used Tobacco e-Cigarette/Vaping Use: Never Used Second Hand Smoke Exposure: No service: No Current occupational status: retired Review of Systems Const All systems reviewed & are unremarkable except as noted in HPI and below Physical Exam Vital Signs: Last Vital Signs Temp 98.0 F 09/01/23 08:08 Pulse 55 09/01/23 08:08 BP 118/64 09/01/23 08:08 Pulse Ox 97 09/01/23 08:08 Oxygen Delivery Method Room Air 09/01/23 08:08 BMI result Body Mass Index 23.5 Const General: comfortable and no acute distress Orientation/consciousness: patient oriented x3 Neuro General: patient oriented x3, gait normal and moves all extremities Extrem Right upper extremity: normal to inspection, full ROM and shoulder/upper arm Details: tenderness Location: over the deltoid bursa and normal ROM; no swelling Left upper extremity: normal to inspection Psych Speech and movement: Normal speech and movement present Assessment & Plan Assessment & Plan (1) Right shoulder strain: Code(s): S46.911A - Strain of unspecified muscle, fascia and tendon at shoulder and upper arm level, right arm, initial encounter Qualifiers: Encounter type: initial encounter Qualified Code(s): S46.911A - Strain of unspecified muscle, fascia and tendon at shoulder and upper arm level, right arm, initial encounter Plan: Xray shoulder Ordered PT Ice/Hot Acetaminophen for pain relief. Orders: Orders PT Evaluation and Treatment Today S46.911A - Strain of unspecified muscle, fascia and tendon at shoulder and upper arm level, right arm, initial encounter XR shoulder RT min 2V Today S46.911A - Strain of unspecified muscle, fascia and tendon at shoulder and upper arm level, right arm, initial encounter Coding Level of Care Code Est Pt Level 3 (05414) Diagnoses Strain of right shoulder, initial encounter S46.911A Encounter type: initial encounter Time Spent (min) 15
[2023-09-01 08:08] VITALS: BP 118/64; PULSE 55; TEMP 36.7; O2SAT 97; BMI 23.5
== END 2023-09-01 08:56 | disposition home or self-care (01) ==
PROVIDERS: PCP Internal Medicine; Visit Provider Nurse Practitioner Family
DX: S46.911A Strain of unspecified muscle, fascia and tendon at shoulder and upper arm level, right arm, initial encounter (principal)
CPT/HCPCS: 99213

== ENCOUNTER 2023-09-01 08:21 | Outpatient (REF) | payer MEDICARE, SELFPAY ==
--- NOTE | ~2023-09-01 | XR_ITS ---
EXAMINATION: XR SHOULDER, RIGHT CLINICAL INFORMATION: Right shoulder pain. COMPARISON: 03/25/2010 TECHNIQUE: AP external rotation, Grashey, scapular Y, and axillary views of the right shoulder. FINDINGS: Glenohumeral and acromioclavicular alignment is anatomic. Mild glenohumeral joint space narrowing with marginal osteophytes. No displaced fracture or dislocation. Tiny soft tissue calcification within the rotator cuff may represent early tendinosis/tendinopathy. XR/XR shoulder RT min 2V IMPRESSION: Mild osteoarthritis of the right shoulder. Tiny soft tissue calcification within the rotator cuff may represent early tendinosis/tendinopathy.
== END 2023-09-01 08:22 | disposition home or self-care (01) ==
LOC: HO.HMGCX 08:21
PROVIDERS: PCP Internal Medicine; Visit Provider Nurse Practitioner Family
DX: S46.911A Strain of unspecified muscle, fascia and tendon at shoulder and upper arm level, right arm, initial encounter (principal)
CPT/HCPCS: 73030

== ENCOUNTER 2023-11-22 11:00 | Outpatient (RCR) | payer MEDICARE, SELFPAY ==
--- NOTE | 2023-10-02 13:00 | MHC.PT.EP ---
[facility] [place] [facility] [place] [facility] [place] Office [address] Olivia Ivory [address] [phone] F: [phone] F: [phone] F: [phone] F: [phone] Physical Therapy Plan of Care Date of Evaluation: 10/02/23 Date of Surgery: Diagnosis: R shoulder pain Assessment: Pt is a 72yo male who was referred to PT for B shoulder pain. PT exam reveals mild shoulder tightness, periscap weakness, and reports UE use indicating some impingement symptoms. Skilled PT indicated to reduce pain, teach improve body mechanics, prescribe exercise for periscap/RTC strengthening to enable pt tp return to PLOF without shoulder pain. Pt in agreement with POC and is motivated to participate. Frequency and Duration: The patient will be seen 2x/week, x 4 weeks Short Term Goals: 1. In 1 week, patient will be I with phase 1 cervicothoracic isometric stability exercises. 2. In 2 weeks, improve B serratus strength/muscle endurance to be able to complete sets of 15 reps supine punches with 5# resistance without pain or compensatory motion. Shelter Goals: 1. In 4 weeks, patient will report 0/10 pain B shoulders with sleep. 2. In 4 weeks, improve his ability to complete 3 different swim strokes without shoulder pain. Treatment Plan: Modalities to reduce pain, spasms and effusion. Manual therapy to restore motion and function. Therapeutic exercise to improve strength and flexibility. Neuromuscular re-education for posture and balance. Therapeutic activities to return to functional activities of daily living. Electronically signed by: Amirah Clark PT, DPT Please sign and return to therapist. Thank you for your referral.
--- NOTE | 2023-12-27 09:46 | MHC.PT.DC ---
[facility] [place] [facility] [place] Office [place] Office [address] Olivia Ivory [address] [phone] F: [phone] F: [phone] F: [phone] F: [phone] Physical Therapy Discharge Report Diagnosis: R shoulder pain Date of Surgery: Date of Evaluation: 10/02/23 Date of Discharge: 11/22/23 Treatments to Date: 9 Cancellations to Date: No Shows to Date: Discharge Status: Achieved Goals Improved Function Independent with HEP Discharge Summary: Pt is a 72yo male who was referred to PT for B shoulder pain. PT exam reveals mild shoulder tightness, periscap weakness, and reports UE use indicating some impingement symptoms. Skilled PT indicated to reduce pain, teach improved body mechanics, prescribe exercise for periscap/RTC strengthening to enable pt to return to PLOF without shoulder pain. Syd has progressed well with therapy and demonstrates decreased frequency and intensity of symptoms. He demonstrates independence with HEP and self management of symptoms. D/C at this time. Thank you for this referral. Electronically signed by: Amirah Clark PT, DPT Please sign and return to therapist. Thank you for your referral.
== END 2023-12-27 09:49 | disposition home or self-care (01) ==
LOC: HO.PT 11:00
PROVIDERS: PCP Internal Medicine; Visit Provider Nurse Practitioner Family
DX: S46.911D Strain of unspecified muscle, fascia and tendon at shoulder and upper arm level, right arm, subsequent encounter (principal)
CPT/HCPCS: 97110; 97140; 97161; 97530

== ENCOUNTER 2024-02-07 12:33 | Outpatient (AMB) | payer MEDICARE, SELFPAY ==
--- NOTE | 2024-02-07 12:37 | A.OFFVIS_ITS ---
Vital Signs 02/07/24 12:38 Height 6 ft Weight 173 lb BMI 23.5 Intake Visit Reasons: Right shoulder pain and weakness Intake Note: Syd is a 73 year old male who presents with complaints of progressively worsening right shoulder pain and weakness. The patient describes his pain as sharp in nature. Most of the pain is along the lateral aspect of his right shoulder. The patient states that his symptoms have gotten worse over the last year in spite of continued non operative treatments. He has had difficulty swimming and riding a bicycle because of his pain. He reports weakness when lifting his right hand above shoulder height. He has failed the last 6 weeks of non operative treatment which has included physical therapy exercises, Tylenol and anti-inflammatory medicines. Allergies tamsulosin Allergy (Severe, Verified 02/07/24 12:47) Dizziness latex [LATEX] Allergy (Unknown, Verified 02/07/24 12:47) BOTHERS PT WHEN EXPOSED A LOT Medication List - Last Reconciled 02/07/24 by Jean Carlos Hardy MD No Known Home Meds [facility] Medical History Multiple adenomatous polyps Surgical History Hx of colonoscopy No history of previous surgery Family History Mother No problems noted. Father No problems noted. Social History Housing: House Alcohol intake: current Alcohol intake frequency: 0-2 drinks per day Patient Tobacco Use Status: Never used Tobacco e-Cigarette/Vaping Use: Never Used Second Hand Smoke Exposure: No service: No Current occupational status: retired Physical Exam Vital Signs: BMI result Body Mass Index 23.5 Const Other: Well-nourished well-developed very friendly male awake alert and oriented x3 in no acute distress Extrem Other: Bilateral upper extremity examination shows good capillary refill, no skin lesions noted, normal sensation light touch Right shoulder examination shows slightly decreased range of motion when compared to his left shoulder, 4+ out of 5 strength with supraspinatus testing, positive impingement signs, tenderness over his acromioclavicular joint, no instability Results Reviewed Results Reviewed: X-rays of the patient's right shoulder show severe acromioclavicular joint narrowing, a type 3 acromion, no acute bony abnormalities Assessment & Plan Assessment & Plan (1) Right shoulder pain: Code(s): M25.511 - Pain in right shoulder Category: Medical Plan Mr. Enrique presents with progressively worsening right shoulder pain and weakness due to impingement syndrome as well as possible rotator cuff tearing. I will send the patient for an MRI of his right shoulder for further evaluation. He will continue with his range of motion exercises in the meantime. He will contact me prior to his next appointment should any questions or concerns arise. Feel free to call me at any time should questions regarding his orthopedic management arise. I spent 21 minutes in reviewing the patient's records and imaging studies, seeing the patient and documenting in the medical record. Orders: Orders MR shoulder RT wo con Today M25.511 - Pain in right shoulder Coding Level of Care Code New Pt Level 3 (75753) Complex EM visit Add On G2211 Diagnoses Right shoulder pain M25.511
[2024-02-07 12:38] VITALS: BMI 23.5
== END 2024-02-07 12:59 | disposition home or self-care (01) ==
PROVIDERS: PCP Internal Medicine; Visit Provider Orthopaedic Surgery
DX: M25.511 Pain in right shoulder (principal)
CPT/HCPCS: 99203; G2211

== ENCOUNTER → 2024-02-07 12:33 | Outpatient (BNVA) | payer MEDICARE, SELFPAY | PROVIDERS: PCP Internal Medicine; Visit Provider Orthopaedic Surgery | DX: M25.511 Pain in right shoulder (principal) | CPT/HCPCS: 99202 ==

== ENCOUNTER 2024-02-08 08:21 | Outpatient (AMB) | payer MEDICARE, SELFPAY ==
--- NOTE | 2024-02-08 08:26 | MHC.OFFVIS ---
Intake Visit Reasons: 6m/PVR Intake Note: Patient is present for 6m/PVR Urology Medication:none Antibiotic Allergy:tamsulosin Blood Thinner:none Last PVR: Todays PVR:0ML'S Food Safety Officer Required: No Allergies tamsulosin Allergy (Severe, Verified 02/08/24 08:27) Dizziness latex [LATEX] Allergy (Unknown, Verified 02/08/24 08:27) BOTHERS PT WHEN EXPOSED A LOT HPI Comments Details: Syd is a pleasant male. He is a patient of Dr. Dillard. He is seen for the following urologic conditions - epididymal cyst - nocturia Six-month follow-up PVR 0 UA normal Tamsulosin caused dizziness Would like laser procedure late April or early May Lower urinary tract symptoms Initial presentation with nocturia 1-2, weakness of stream Tamsulosin closed dizziness, finasteride decline in libido PSA 11/17 0.8, 07/19 0.9 Epididymal cyst Left-sided epididymal cyst Approximately 2-3 cm on exam Minimal bother currently Reassurance provided regarding natural history Review in 12 months [facility] Medical History Multiple adenomatous polyps Surgical History Hx of colonoscopy No history of previous surgery Family History Mother No problems noted. Father No problems noted. Social History Housing: House Alcohol intake: current Alcohol intake frequency: 0-2 drinks per day Patient Tobacco Use Status: Never used Tobacco e-Cigarette/Vaping Use: Never Used Second Hand Smoke Exposure: No service: No Current occupational status: retired Review of Systems Const Denies chills and Denies fever(s) Card Reports no additional complaints and Denies syncope Resp Denies cough GI Denies abdominal pain and Denies heartburn Reports as per HPI and Denies change in libido Neuro Denies syncope Psych Denies change in libido Endo Denies change in libido Physical Exam Const General: cooperative, healthy appearing, comfortable and no acute distress Orientation/consciousness: patient oriented x3 HEENT Face and sinus: Yes normal facial exam Mouth: moist mucous membranes Neck Neck: Yes normal visual inspection, Yes full ROM and Yes trachea midline Chest Chest palpation & inspection: normal inspection of the chest Resp Effort & Inspection: normal respiratory effort, able to speak in complete sentences and no respiratory distress GI Inspection: Yes normal to inspection Back/Spine/Pelvis Cervical Spine: normal cervical lordosis Thoracic/Lumbar Spine: thoracic and lumbar spine normal to inspection Skin General skin exam: no rashes or lesions noted Neuro General: patient oriented x3, gait normal, tone normal and moves all extremities Extrem General: Yes normal to inspection and Yes capillary refill normal Office Procedures Post Void Residual Post Residual Void Post Void Residual (PVR): 0 [id number] Void Residual by ultrasound Results AMB Urinalysis, Automated UA Leukoctes 0 Delmi/uL Last Edit by GUIDO Pichardo on 02/08/24 08:35 UA Nitrite Negative Last Edit by GUIDO Pichardo on 02/08/24 08:35 UA Urobilinogen 0.2 mg/dL Last Edit by GUIDO Pichardo on 02/08/24 08:35 UA Protein 0 mg/dL Last Edit by GUIDO Pichardo on 02/08/24 08:35 UA pH 6.0 Last Edit by GUIDO Pichardo on 02/08/24 08:35 UA Blood 0 Billy/uL Last Edit by GUIDO Pichardo on 02/08/24 08:35 UA Specific [place] 1.020 Last Edit by GUIDO Pichardo on 02/08/24 08:35 UA Ketone Negative Last Edit by GUIDO Pichardo on 02/08/24 08:35 UA Bilirubin 0 mg/dL Last Edit by GUIDO Pichardo on 02/08/24 08:35 UA Glucose 0 mg/dL Last Edit by GUIDO Pichardo on 02/08/24 08:35 Results Reviewed Results Reviewed: Laboratory Last Values Urine pH (Auto) 6.0 02/08/24 08:34 Specific [place] (Auto) 1.020 02/08/24 08:34 Urine Protein (Auto) 0 mg/dL 02/08/24 08:34 Glucose (UA)(Auto) 0 mg/dL 02/08/24 08:34 Urine Ketones (Auto) Negative 02/08/24 08:34 Urine Blood (Auto) 0 Billy/uL 02/08/24 08:34 Urine Nitrite (Auto) Negative 02/08/24 08:34 Urine Bilirubin (Auto) 0 mg/dL 02/08/24 08:34 Urine Urobilinogen (Auto) 0.2 mg/dL 02/08/24 08:34 Leukocyte Esterase (Auto) 0 Delmi/uL 02/08/24 08:34 Assessment & Plan Assessment & Plan (1) Nocturia associated with benign prostatic hyperplasia: Code(s): N40.1 - Benign prostatic hyperplasia with lower urinary tract symptoms; R35.1 - Nocturia Category: Medical Plan We discussed the nature of the decision and reasonable options for performing a prostate intervention. Interventions include TURP, GreenLight laser enucleation of the prostate, GreenLight laser ablation of the prostate, transurethral incision of the prostate, and I-Tend prostate procedure. Options such as medical therapy were discussed. The relative uncertainties and benefits related to each alternate procedure were adequately discussed. General surgical risks including, but not limited to, pain, bleeding, infection, myocardial infarction, pulmonary embolus, deep vein thrombosis and cerebrovascular accident which may result in further hospitalization were discussed. Full disclosure of the procedure as well as all major risks, benefits and complications were discussed including but not limited to damage to the urethra or bladder neck, recurrent BPH, retrograde ejaculation, bladder infection, urge, de jose frequency, incomplete emptying, dysuria, remote chance of erectile dysfunction, epididymitis, and meatal stenosis. The success rate of the procedure was discussed. Success of the procedure in the short-term does not necessarily guarantee that long-term success will be maintained. Suitable follow up will need to be maintained. The patient showed understanding of discussion. An opportunity was provided for questions to be answered and wishes to proceed with the following procedure. - - green light laser prostate Orders: Orders AMB Urinalysis Automated Today Z13.9 - Encounter for screening, unspecified Patient Instructions: Imaging studies, laboratory and physical exam results were discussed and reviewed in detail. No major barriers to patient understanding were identified. An opportunity to ask questions regarding the treatment plan was provided. All questions were answered. The patient expressed understanding and agreement with the above treatment plan. The patient is aware they should contact our office by phone for worsening of their current condition or the appearance of new urologic symptoms. Compliance is encouraged with any medications and followup testing that is ordered. It is a privilege to participate in the urologic care of your patient. If you have any questions or concerns regarding treatment for the above conditions, or other urologic issues, please do not hesitate to contact me. The office telephone contact is [phone]. This note is constructed using voice recognition software. While every effort has been made to ensure accuracy bee producer errors may have been included. Yours sincerely, Dr Esa Mae MD, [facility] - Urology Providers of Expert, Compassionate Care for the Genitourinary System Coding Level of Care Code Est Pt Level 4 (42402) Diagnoses Nocturia associated with benign prostatic hyperplasia N40.1; R35.1 CPT Codes Post Residual Void - PVR CPT Code: 79112-Rybb Void Residual by ultrasound ([id number])
== END 2024-02-08 09:12 | disposition home or self-care (01) ==
PROVIDERS: PCP Internal Medicine; Visit Provider Urology
DX: N40.1 Benign prostatic hyperplasia with lower urinary tract symptoms (principal); R35.1 Nocturia; Z13.9 Encounter for screening, unspecified
CPT/HCPCS: 99214

== ENCOUNTER → 2024-02-08 08:21 | Outpatient (BNVA) | payer MEDICARE, SELFPAY | PROVIDERS: PCP Internal Medicine; Visit Provider Urology | DX: N40.1 Benign prostatic hyperplasia with lower urinary tract symptoms (principal); R35.1 Nocturia | CPT/HCPCS: 51798; 81003; 99212 ==

== ENCOUNTER 2024-02-28 10:46 | Outpatient (REF) | payer MEDICARE, SELFPAY | END 2024-02-28 10:47 | disposition home or self-care (01) | LOC: HO.MRI 10:46 | PROVIDERS: Visit Provider Orthopaedic Surgery | DX: M25.511 Pain in right shoulder (principal) | CPT/HCPCS: 73221 ==

== ENCOUNTER → 2024-02-28 10:58 | Outpatient (BNV) | payer MEDICARE, SELFPAY | PROVIDERS: Visit Provider Specialist | DX: S42.251A Displaced fracture of greater tuberosity of right humerus, initial encounter for closed fracture (principal) | CPT/HCPCS: 73221 ==

== ENCOUNTER 2024-03-13 13:24 | Outpatient (AMB) | payer MEDICARE, SELFPAY ==
--- NOTE | 2024-03-13 13:30 | MHC.OFFVIS ---
Intake Visit Reasons: Right shoulder pain Intake Note: Syd is a 73 year old male who presents with complaints of progressively worsening right shoulder pain. The patient describes his pain as sharp in nature. Most of the pain is along the lateral aspect of his right shoulder. The patient states that his symptoms have gotten worse over the last year in spite of continued non operative treatments. He has had difficulty swimming and riding a bicycle because of his pain. He reports weakness when lifting his right hand above shoulder height. He has failed the last 6 weeks of non operative treatment which has included physical therapy exercises, Tylenol and anti-inflammatory medicines. Allergies tamsulosin Allergy (Severe, Verified 03/13/24 13:32) Dizziness latex [LATEX] Allergy (Unknown, Verified 03/13/24 13:32) BOTHERS PT WHEN EXPOSED A LOT Medication List - Last Reconciled 03/13/24 by Jean Carlos Hardy MD No Known Home Meds [facility] Medical History Multiple adenomatous polyps Surgical History Hx of colonoscopy No history of previous surgery Family History Mother No problems noted. Father No problems noted. Social History Housing: House Alcohol intake: current Alcohol intake frequency: 0-2 drinks per day Patient Tobacco Use Status: Never used Tobacco e-Cigarette/Vaping Use: Never Used Second Hand Smoke Exposure: No service: No Current occupational status: retired Physical Exam Const Other: Well-nourished well-developed very friendly male awake alert and oriented x3 in no acute distress Extrem Other: Bilateral upper extremity examination shows good capillary refill, no skin lesions noted, normal sensation light touch Right shoulder examination shows slightly decreased range of motion when compared to left shoulder, 4+ out of 5 strength with supraspinatus testing, positive impingement signs, tenderness over his acromioclavicular joint, no instability Results Reviewed Results Reviewed: MRI of the patient's right shoulder show severe acromioclavicular joint narrowing, a type 2 acromion, signal change within the supraspinatus tendon due to rotator cuff tendinosis versus a small tear Assessment & Plan Assessment & Plan (1) Right shoulder pain: Code(s): M25.511 - Pain in right shoulder Category: Medical (2) Impingement of right shoulder: Code(s): M25.811 - Other specified joint disorders, right shoulder Category: Medical Plan Mr. Enrique presents with progressively worsening right shoulder pain due to impingement syndrome, acromioclavicular joint arthritis and rotator cuff tendinosis versus a small tear. I had a lengthy discussion with the patient regarding the treatment options. At this point he has failed continued non operative treatments. The risks and benefits of right shoulder surgery were discussed at length with the patient. The patient is interested in proceeding with surgery. He will be scheduled for next available date. Surgery will most likely involve right shoulder diagnostic arthroscopy with distal clavicle excision, acromioplasty and rotator cuff repair should a full-thickness tear be found at the time of his surgery. The patient will follow-up as instructed. Feel free to call me at any time should questions regarding his orthopedic management arise. I spent 22 minutes in reviewing the patient's records and imaging studies, seeing the patient and documenting in the medical record. Coding Level of Care Code Est Pt Level 3 (52956) Complex EM visit Add On G2211 Diagnoses Right shoulder pain M25.511 Impingement of right shoulder M25.811
== END 2024-03-13 13:56 | disposition home or self-care (01) ==
PROVIDERS: PCP Internal Medicine; Visit Provider Orthopaedic Surgery
DX: M25.511 Pain in right shoulder (principal); M25.811 Other specified joint disorders, right shoulder
CPT/HCPCS: 99213; G2211

== ENCOUNTER → 2024-03-13 13:24 | Outpatient (BNVA) | payer MEDICARE, SELFPAY | PROVIDERS: PCP Internal Medicine; Visit Provider Orthopaedic Surgery | DX: M25.511 Pain in right shoulder (principal); M25.811 Other specified joint disorders, right shoulder | CPT/HCPCS: 99212 ==

== ENCOUNTER 2024-04-26 09:30 | Day surgery (SDC) | payer MEDICARE, SELFPAY ==
[2024-04-12 09:28] VITALS: BMI 23.1
[2024-04-26] VITALS (8 sets, daily range): BP systolic 123–141; BP diastolic 68–78; PULSE 51–58; RESP 16; TEMP 36.1–36.9; O2SAT 98; BMI 22.5
[2024-04-26] MEDS: Lactated Ringers 1,000 ML 100 ML IVCONT (10:23)
--- NOTE | 2024-04-26 10:28 | HO.ANESPROP2 ---
Documented by User: Yajaira Marcial NP 04/24/24 14:55 HPI - Anesthesia Eval Consult details Narrative: 73yo M for Right Shoulder Arthroscopy distal clavicle excision, acromioplasty, possible rotator cuff repair PMFSH Active Problems Active Problems: All Active Problems Impingement of right shoulder (Acute) Right shoulder pain (Acute) Tubulovillous adenoma polyp of rectum (Acute) Cecal polyp (Acute) Encounter for screening colonoscopy (Acute) Nocturia associated with benign prostatic hyperplasia (Acute) Physical exam (Acute) Skin lesion (Acute) Scrotal cyst (Acute) Headache (Acute) Sinusitis (Acute) Labyrinthine disorder (Acute) Multiple adenomatous polyps (Acute) Past Medical History Medical History (Updated 04/12/24 @ 09:32 by Patricia Aguilar RN) BPH (benign prostatic hyperplasia) Arthritis Snores Multiple adenomatous polyps Family History Family History Mother No problems noted. Father No problems noted. Family history of problems with anesthesia: No Surgical History Surgical History Hx of colonoscopy No history of previous surgery History of Problems with Anesthesia: No Social History Social History (Updated 04/12/24 @ 09:33 by Patricia Aguilar RN) Household Members: Spouse Housing: House Are you a primary assisted living care manager to a significant other at home: No Do you presently have visiting nurse or other home services: No Alcohol intake: current Alcohol intake frequency: does not drink Patient Tobacco Use Status: Never used Tobacco e-Cigarette/Vaping Use: Never Used Second Hand Smoke Exposure: No Use of substances other than those prescribed or required for medical reasons: No Have you been hit, kicked, punched, or otherwise hurt by someone within the past year? If so, by whom?: No Are you DNR?: No Advance Directives: No (will bring DOS) Advance Directives Information Provided: Yes Advance Directives on File: No Recently lost weight without trying: No Nutrition Risks: No Nutritional Risk Poor oral hygiene: No service: No Current occupational status: retired Meds Allergies Allergy/AdvReac Type Severity Reaction Status Date / Time latex [LATEX] Allergy Mild skin Verified 04/12/24 09:27 redness with extended use of latex gloves tamsulosin AdvReac Severe Dizziness Verified 04/12/24 09:27 Active Medications: Current Medications Cefazolin Sodium/Dextrose (Ancef) 2 gm in 50 mls @ 100 mls/hr IV PREOP ONE Stop: 04/26/24 05:48 Home Medications ?Medication ?Instructions ?Recorded ?Confirmed ?Last Taken ?Type No Known Home Meds 09/01/23 04/12/24 Unknown History Exam Height,Weight and Vital Signs: Height 6 ft Weight 77.111 kg Assessment and Plan Assessment Anesthesia Assessment: Chart Reviewed Final Anesthetic Review Family History of Problems with Anesthesia: No History of Problems with Anesthesia: No Documented by User: Louann Marie DO 04/26/24 10:30 [facility] Past Medical History Medical History (Updated 04/12/24 @ 09:32 by Patricia Aguilar RN) BPH (benign prostatic hyperplasia) Arthritis Snores Multiple adenomatous polyps Family History Family History Mother No problems noted. Father No problems noted. Family history of problems with anesthesia: No Surgical History Surgical History Hx of colonoscopy No history of previous surgery History of Problems with Anesthesia: No Social History Social History (Updated 04/12/24 @ 09:33 by Patricia Aguilar RN) Household Members: Spouse Housing: House Are you a primary assisted living care manager to a significant other at home: No Do you presently have visiting nurse or other home services: No Alcohol intake: current Alcohol intake frequency: does not drink Patient Tobacco Use Status: Never used Tobacco e-Cigarette/Vaping Use: Never Used Second Hand Smoke Exposure: No Use of substances other than those prescribed or required for medical reasons: No Have you been hit, kicked, punched, or otherwise hurt by someone within the past year? If so, by whom?: No Are you DNR?: No Advance Directives: No (will bring DOS) Advance Directives Information Provided: Yes Advance Directives on File: No Recently lost weight without trying: No Nutrition Risks: No Nutritional Risk Poor oral hygiene: No service: No Current occupational status: retired Meds Allergies Allergy/AdvReac Type Severity Reaction Status Date / Time latex [LATEX] Allergy Mild skin Verified 04/12/24 09:27 redness with extended use of latex gloves tamsulosin AdvReac Severe Dizziness Verified 04/12/24 09:27 Home Medications ?Medication ?Instructions ?Recorded ?Confirmed ?Last Taken ?Type No Known Home Meds 09/01/23 04/12/24 Unknown History Exam Exam Date and Time: 04/26/24 1028 Height,Weight and Vital Signs: Height 6 ft Weight 77.111 kg Vital Signs Temperature 98.5 F 04/26/24 10:10 Pulse Rate 53 04/26/24 10:10 Respiratory Rate 16 04/26/24 10:10 Blood Pressure 141/74 H 04/26/24 10:10 Pulse Oximetry 98 04/26/24 10:10 Oxygen Delivery Method Room Air 04/26/24 10:10 Temperature 98.5 F 04/26/24 10:10 Pulse Rate 53 04/26/24 10:10 Respiratory Rate 16 04/26/24 10:10 Blood Pressure 141/74 H 04/26/24 10:10 Pulse Oximetry 98 04/26/24 10:10 Oxygen Delivery Method Room Air 04/26/24 10:10 Airway Mallampati Class: I TM Dist: >3cm Neck ROM: Full Loose/Missing/Broken Teeth: No (patient denies any loose or broken teeth) Heart: S1S2 Lungs: CTAB Assessment and Plan Assessment Anesthesia Assessment: Anesthesia Plan Discussed and Chart Reviewed Final Anesthetic Review Family History of Problems with Anesthesia: No History of Problems with Anesthesia: No NPO: Yes ASA Class: I Final Preanesthetic Review: No Changes in Pt Med Stat, Meds/Allgs Chart Reviewed, Consent Obtained/Reviewed and Anes Risks/Benef Reviewed Patient Risk: Low Procedure Risk: Intermediate Anesthetic Plan Anesthetic Plan: GA, Regional Block (right brachial plexus block) and Agree w/ Assess. and Plan Disposition: Standard PACU
--- NOTE | 2024-04-26 12:31 | PM.OP ---
Brief Operative Note Date of Service: 04/26/24 Pre-op diagnosis: Right shoulder impingement syndrome, right shoulder acromioclavicular joint arthritis, right shoulder adhesive capsulitis Post-op diagnosis: same Procedure: Right shoulder diagnostic arthroscopy with right shoulder arthroscopic distal clavicle excision, right shoulder arthroscopic acromioplasty, right shoulder arthroscopic anterior capsular release, right shoulder manipulation under anesthesia Implants: none Surgeon: Jean Carlos Hardy MD Anesthesia: GETA and regional Was an Corrosion Control Specialist used for this Procedure?: No Estimated blood loss (mL): 10 Pathology: none sent Condition: stable Disposition: PACU
--- NOTE | 2024-04-26 12:32 | W.PM.OPN ---
Operative Note Operative Note Date of Service: 04/26/24 Narrative: After the patient was identified as Syd Enrique and his right shoulder was initialed by myself the patient was brought to the holding area where a right shoulder interscalene regional block was performed by the anesthesiologist in routine fashion. The patient was then brought to the operating room where general anesthesia was induced by the anesthesiologist in routine fashion. The patient was given 2 g of IV Ancef preoperatively for infection prophylaxis. Examination under anesthesia of the patient's right shoulder showed decreased passive range of motion when compared to the left shoulder. The patient's right shoulder had passive forward flexion to 130 degrees compared to 170 degrees, external rotation to 30 degrees compared to 60 degrees, and internal rotation to 40 degrees compared to 50 degrees. The patient was gently positioned in the beach chair position with all bony prominences well padded. The patient's right shoulder region and upper extremity were prepped and draped in sterile fashion. A formal time-out was completed. A #11 scalpel blade was used to make a posterior portal 2 cm inferior and 1 cm medial to the posterolateral corner of the acromion. Blunt trocar technique was used to enter the glenohumeral joint in routine fashion. An anterior portal was made just lateral to the coracoid process after proper positioning was confirmed using a spinal needle. Diagnostic arthroscopy showed minimal degenerative changes of the glenoid and humeral head articular surfaces. There was no evidence of rotator cuff tearing. The biceps tendon was not identified. There was inflammation of the anterior joint capsule consistent with adhesive capsulitis. The ArthroCare Wand was then used to perform an anterior capsular release between the inferior border of the biceps tendon and the superior border of the subscapularis tendon. The arthroscope was then placed from the posterior portal into the subacromial space. A lateral portal was made 2 fingerbreadths lateral to the anterior lateral corner of the acromion. The ArthroCare Wand was used to ablate soft tissues along the undersurface of the acromion as well as to excise the coracoacromial ligament. There was a sharp spur along the undersurface of the acromion which was removed using the hooded bur. The arthroscope was then placed into the lateral portal and the acromioplasty was completed with the bur in the posterior portal using the posterior aspect of the acromion as a cutting block. The ArthroCare Wand was then brought in through the anterior portal and was used to ablate soft tissues along the acromioclavicular joint and distal clavicle. The posterior and superior ligamentous structures were left intact. A distal clavicle excision of 8 mm was performed using the fluted bur. Any remaining bursal tissue was removed using the arthroscopic shaver. The subacromial space was irrigated and then drained. All arthroscopic instruments were removed. A gentle manipulation under anesthesia was then performed. Full passive range of motion was easily attained. The 3 portals were closed with 3-0 nylon interrupted suture. The subacromial space was injected with Marcaine. Dry sterile dressing was placed over all incisions. The patient's right upper extremity was placed into a sling. The patient was awoken and extubated in the operating room. The patient was transferred to the recovery room in stable condition.
[2024-04-26] MEDS: cefTRIAXone sodium 1 GM VIAL IVPUSH (13:23)
== END 2024-04-26 14:07 | disposition home or self-care (01) ==
PROVIDERS: Visit Provider Orthopaedic Surgery
PROC: (CPT 29805; principal; 2024-04-26 11:30)
DX: M75.41 Impingement syndrome of right shoulder (principal); M75.01 Adhesive capsulitis of right shoulder; M19.011 Primary osteoarthritis, right shoulder; M25.511 Pain in right shoulder; M25.811 Other specified joint disorders, right shoulder; Z91.040 Latex allergy status; Z88.8 Allergy status to other drugs, medicaments and biological substances
CPT/HCPCS: 29824; 29825; 29826; J0131; J0171; J0690; J0696; J1100; J2003; J2250; J2405; J2704; J2795

== ENCOUNTER → 2024-04-26 09:30 | Outpatient (BNV) | payer MEDICARE, SELFPAY | PROVIDERS: Visit Provider Orthopaedic Surgery | DX: M75.41 Impingement syndrome of right shoulder (principal); M19.011 Primary osteoarthritis, right shoulder; M75.01 Adhesive capsulitis of right shoulder | CPT/HCPCS: 29824; 29826 ==

== ENCOUNTER 2024-05-09 11:43 | Outpatient (AMB) | payer MEDICARE, SELFPAY ==
[2024-05-09 11:56] VITALS: BMI 22.4
--- NOTE | 2024-05-09 11:56 | MHC.OFFVIS ---
Vital Signs 05/09/24 11:56 Height 6 ft Weight 165 lb BMI 22.4 Intake Visit Reasons: PO RT shoulder 04/26/24 Intake Note: Syd is a 73 year old male who presents today for a post-operative visit after undergoing a right shoulder arthroscopy on 04/26/24. Patient reports he is doing well. Patient states there is some soreness at the shoulder from going to PT yesterday. Patient is taking Tylenol for pain with relief. Stitches removed in office today and steri strips applied. Allergies latex [LATEX] Allergy (Mild, Verified 05/09/24 11:56) skin redness with extended use of latex gloves tamsulosin Adverse Reaction (Severe, Verified 05/09/24 11:56) Dizziness [facility] Medical History (Updated 04/12/24 @ 09:32 by Patricia Aguilar RN) BPH (benign prostatic hyperplasia) Arthritis Snores Multiple adenomatous polyps Surgical History Hx of colonoscopy No history of previous surgery Family History Mother No problems noted. Father No problems noted. Social History (Updated 04/12/24 @ 09:33 by Patricia Aguilar RN) Household Members: Spouse Housing: House Are you a primary direct care worker to a significant other at home: No Do you presently have visiting nurse or other home services: No 75 years or older and lives alone: No Alcohol intake: current Alcohol intake frequency: does not drink Patient Tobacco Use Status: Never used Tobacco e-Cigarette/Vaping Use: Never Used Second Hand Smoke Exposure: No service: No Current occupational status: retired Physical Exam Vital Signs: BMI result Body Mass Index 22.4 Extrem Other: Right shoulder examination shows that the surgical incisions are healing well, slightly decreased range of motion when compared to his left shoulder, mild to moderate discomfort with range of motion Assessment & Plan Assessment & Plan (1) Right shoulder pain: Code(s): M25.511 - Pain in right shoulder Category: Medical Plan Syd is doing well after undergoing right shoulder arthroscopic surgery on 04/26/2024. He will continue with his physical therapy exercises. He will gradually progress to activities as tolerated. He will contact me prior to his follow-up appointment in 4-6 weeks should any questions or concerns arise. Feel free to call me at any time should questions regarding his orthopedic management arise. Coding Level of Care Code Global (62758) Diagnoses Right shoulder pain M25.511
== END 2024-05-09 12:30 | disposition home or self-care (01) ==
LOC: HO.HOS 11:44
PROVIDERS: PCP Internal Medicine; Visit Provider Orthopaedic Surgery
DX: M25.511 Pain in right shoulder (principal)
CPT/HCPCS: 99024

== ENCOUNTER → 2024-05-09 11:43 | Outpatient (BNVA) | payer MEDICARE, SELFPAY | PROVIDERS: PCP Internal Medicine; Visit Provider Orthopaedic Surgery | DX: M25.511 Pain in right shoulder (principal); Z47.89 Encounter for other orthopedic aftercare; Z98.890 Other specified postprocedural states | CPT/HCPCS: 99212 ==

== ENCOUNTER 2024-06-26 08:21 | Outpatient (AMB) | payer MEDICARE, SELFPAY ==
--- NOTE | 2024-06-26 08:23 | A.OFFVIS_ITS ---
Vital Signs 06/26/24 08:26 Height 6 ft Weight 165 lb BMI 22.4 Handedness Right Intake Visit Reasons: PO - Right Shoulder Arthroscopy 04/26/24, Left shoulder pain and weakness Intake Note: Syd is a 73 year old right hand dominant male who presents with complaints of progressively worsening left shoulder pain and weakness. The patient did un dergo right shoulder arthroscopic surgery on 04/26/2024. He reports minimal discomfort in his right shoulder. He describes his left shoulder pain as sharp in nature. Most of the pain is along the lateral aspect of his left shoulder. He reports weakness when lifting his left hand above shoulder height. His left shoulder pain and weakness have gotten worse over the last year in spite of continued non operative treatments. He has done physical therapy exercises which aggravated his pain. He has also tried Tylenol and anti-inflammatory medicines which gave him minimal relief. He has failed the last 6 weeks of conservative treatment. Allergies latex [LATEX] Allergy (Mild, Verified 06/26/24 08:26) skin redness with extended use of latex gloves tamsulosin Adverse Reaction (Severe, Verified 06/26/24 08:26) Dizziness [facility] Medical History (Updated 06/26/24 @ 08:40 by Jean Carlos Hardy MD) BPH (benign prostatic hyperplasia) Arthritis Snores Multiple adenomatous polyps Surgical History Hx of colonoscopy No history of previous surgery Family History Mother No problems noted. Father No problems noted. Social History Household Members: Spouse Housing: House Are you a primary day care center director to a significant other at home: No Do you presently have visiting nurse or other home services: No 75 years or older and lives alone: No Alcohol intake: current Alcohol intake frequency: does not drink Patient Tobacco Use Status: Never used Tobacco e-Cigarette/Vaping Use: Never Used Second Hand Smoke Exposure: No service: No Current occupational status: retired Physical Exam Vital Signs: BMI result Body Mass Index 22.4 Const Other: Well-nourished well-developed very friendly male awake alert and oriented x3 in no acute distress Extrem Other: Right shoulder examination shows that the surgical incisions are well healed, no erythema, minimal discomfort with range of motion, no instability Left shoulder examination shows decreased range of motion when compared to his right shoulder, 4+ out of 5 strength with supraspinatus testing, positive impingement signs, tenderness over his acromioclavicular joint, no instability Assessment & Plan Assessment & Plan (1) Right shoulder pain: Code(s): M25.511 - Pain in right shoulder Category: Medical (2) Rotator cuff insufficiency of left shoulder: Code(s): M25.312 - Other instability, left shoulder Category: Medical (3) Left shoulder pain: Code(s): M25.512 - Pain in left shoulder Category: Medical Plan Mr. Enrique is doing very well after undergoing right shoulder arthroscopic surgery on 04/26/2024. He does have progressively worsening left shoulder pain and weakness due to impingement syndrome and possible rotator cuff tearing. Thus, I will send the patient for an MRI of his left shoulder for further evaluation. I will see him back once the MRI is completed to discuss the findings and treatment options. Feel free to call me at any time should questions regarding his orthopedic management arise. I spent 21 minutes in reviewing the patient's records and imaging studies, seeing the patient and documenting in the medical record. Orders: Orders MR shoulder LT wo con Today M25.312 - Other instability, left shoulder Coding Level of Care Code Est Pt Level 3 (07679) Complex EM visit Add On G2211 Diagnoses Right shoulder pain M25.511 Rotator cuff insufficiency of left shoulder M25.312 Left shoulder pain M25.512
[2024-06-26 08:26] VITALS: BMI 22.4
== END 2024-06-26 08:39 | disposition home or self-care (01) ==
LOC: HO.HOS 08:21
PROVIDERS: PCP Internal Medicine; Visit Provider Orthopaedic Surgery
DX: M25.511 Pain in right shoulder (principal); M25.312 Other instability, left shoulder; M25.512 Pain in left shoulder
CPT/HCPCS: 99213; G2211

== ENCOUNTER → 2024-06-26 08:21 | Outpatient (BNVA) | payer MEDICARE, SELFPAY | PROVIDERS: PCP Internal Medicine; Visit Provider Orthopaedic Surgery | DX: M25.511 Pain in right shoulder (principal); M25.312 Other instability, left shoulder; M25.512 Pain in left shoulder | CPT/HCPCS: 99212 ==

== ENCOUNTER 2024-06-27 08:16 | Outpatient (AMB) | payer MEDICARE, SELFPAY ==
--- NOTE | 2024-06-27 08:16 | A.OFFVIS_ITS ---
Intake Visit Reasons: Greenlight discussion Intake Note: Patient is present for a greenlight discussion Urology Medication:none Antibiotic Allergy:tamsulosin Blood Thinner:none Chucking Machine Set Up Operator Required: No Allergies latex [LATEX] Allergy (Mild, Verified 06/27/24 08:17) skin redness with extended use of latex gloves tamsulosin Adverse Reaction (Severe, Verified 06/27/24 08:17) Dizziness HPI Comments Details: Syd is a pleasant male. He is a patient of Dr. Dillard. He is seen for the following urologic conditions - epididymal cyst - nocturia Telemedicine Evaluation 15 min Consultation [employer] Has had issues with his shoulders. Has undergone shoulder procedure on left side. Upcoming procedure for right side. Would like to defer prostate issues. Follow-up six-month Lower urinary tract symptoms Initial presentation with nocturia 1-2, weakness of stream Tamsulosin closed dizziness, finasteride decline in libido PSA 11/17 0.8, 07/19 0.9 Epididymal cyst Left-sided epididymal cyst Approximately 2-3 cm on exam Minimal bother currently Reassurance provided regarding natural history Review in 12 months [facility] Medical History BPH (benign prostatic hyperplasia) Arthritis Snores Multiple adenomatous polyps Surgical History Hx of colonoscopy No history of previous surgery Family History Mother No problems noted. Father No problems noted. Social History Household Members: Spouse Housing: House Are you a primary urgent care physician assistant to a significant other at home: No Do you presently have visiting nurse or other home services: No 75 years or older and lives alone: No Alcohol intake: current Alcohol intake frequency: does not drink Patient Tobacco Use Status: Never used Tobacco e-Cigarette/Vaping Use: Never Used Second Hand Smoke Exposure: No Use of substances other than those prescribed or required for medical reasons: No service: No Current occupational status: retired Review of Systems Const All systems reviewed & are unremarkable except as noted in HPI and below Reports no additional complaints Resp Reports no additional complaints GI Reports no additional complaints Reports as per HPI Musc Reports no additional complaints Physical Exam Telemedicine evaluation Appropriate responses Regular breathing rate and rhythm HEENT Head: Yes normal to inspection Ears: hearing grossly normal bilaterally Eyes General: appearance normal, both eyes and all related structures Neck Neck: Yes normal visual inspection Chest Chest palpation & inspection: normal inspection of the chest Resp Effort & Inspection: normal respiratory effort and able to speak in complete sentences Telehealth Telehealth Telehealth Platform: [facility] Location of provider rendering services: practice address Location of patient: address on file Patient Identification confirmed using: Name, : Yes Telehealth method: video Patient verbally consented to treatment: Yes Patient verbally consented to billing insurance company: Yes Patient informed of any privacy concerns related to visit: Yes Minutes spent on Phone/Video with Pt.: 15 Assessment & Plan Assessment & Plan (1) Nocturia associated with benign prostatic hyperplasia: Code(s): N40.1 - Benign prostatic hyperplasia with lower urinary tract symptoms; R35.1 - Nocturia Category: Medical Plan Six-month follow-up office PVR Patient Instructions: This note is constructed using voice recognition software. While every effort has been made to ensure accuracy physician asst errors may have been included. Imaging studies, laboratory and physical exam results were discussed and reviewed in detail. No major barriers to patient understanding were identified. An opportunity to ask questions regarding the treatment plan was provided. All questions were answered. The patient expressed understanding and agreement with the above treatment plan. The patient is aware they should contact our office by phone for worsening of their current condition or the appearance of new urologic symptoms. Compliance is encouraged with any medications and followup testing that is ordered. It is a privilege to participate in the urologic care of your patient. If you have any questions or concerns regarding treatment for the above conditions, or other urologic issues, please do not hesitate to contact me. The office telephone contact is [phone]. Sincerely, Dr Esa Mae MD, [facility] - Urology Compassionate Specialist Care for the Genitourinary System Coding Level of Care Code Tele Est Pt Level 3 (75635) Complex EM visit Add On G2211 Diagnoses Nocturia associated with benign prostatic hyperplasia N40.1; R35.1
== END 2024-06-27 09:41 | disposition home or self-care (01) ==
LOC: HO.HUSH 08:16
PROVIDERS: PCP Internal Medicine; Visit Provider Urology
DX: N40.1 Benign prostatic hyperplasia with lower urinary tract symptoms (principal); R35.1 Nocturia
CPT/HCPCS: 99213; G2211

== ENCOUNTER 2024-07-06 09:56 | Outpatient (REF) | payer MEDICARE, SELFPAY ==
--- NOTE | ~2024-07-06 | MR_ITS ---
EXAMINATION: MR SHOULDER, LEFT CLINICAL INFORMATION: Instability left shoulder; pain, getting worse, now fall no injury. COMPARISON: No prior MR. No prior plain films. TECHNIQUE: Multiplanar multisequence MR imaging of the left shoulder was done without IV contrast. Examination performed on a 1.5 [employer] Siemens unit utilizing standard sequences. FINDINGS: Study is somewhat limited by motion on numerous pulsing sequences. Rotator Cuff and Biceps Tendon: Supraspinatus: Extensive high signal is present throughout the tendon, most notable in the undersurface of the critical zone, encompassing approximately 50% of the tendinous width, consistent with tearing. In addition, there is rim rent type tearing of the medial footplate attachment, approximately 30%, of the entire supraspinatus tendon. There is thickening and hyperintensity of the entire tendon consistent with tendinopathy. There is no full-thickness tear or tendinous retraction identified. There is no atrophy of the muscle belly identified. Infraspinatus: There is extensive irregular tearing from the medial one half of the footplate attachment extending into the undersurface of the critical zone, approximately 50% 10 minutes with. There is associated tendinopathy of the tendon. There is no full-thickness tear or tendinous retraction. There is a small focus of fluid in the bursal surface near the myotendinous junction, at the junction of the supraspinatus and infraspinatus tendons (series 7, image 16). No atrophy of the muscle belly. Subscapularis: There is high-grade irregular tearing of the insertion of the subscapularis tendon. Unfortunately, the patient is in poor external rotation, confounding the appearance. There is associated tendinopathy of the tendon. Mild atrophy of the muscle belly is present. In addition there is a fluid collection within the subcoracoid bursa. Teres Minor: The tendon appears intact. The muscle belly is normal. Biceps Long Head: The distal tendon is located within the bicipital groove, although the more superior tendon is subluxed medially out of the groove, and has a macerated type appearance consistent with irregular tearing. Cannot well assess the tendon within the rotator interval due to obliquity and motion. On the axial sequences, it also appears partially torn. AC Joint and Acromiohumeral Arch: There is moderate degenerative spurring of the AC joint with periarticular edema, joint capsular distention, and both superior and undersurface spurring. Undersurface spurring encroaches moderately on the supraspinatus outlet. There is a type II acromion. Glenohumeral Joint and Labrum: Moderate degenerative arthritis in the glenohumeral joint with several foci of subchondral bone plate edema in the humeral head and glenoid, with overlying full-thickness cartilage fissuring. There are small undersurface osteophytes of the humeral head and glenoid. There is irregularity of the glenoid articular surface. There is a small joint effusion present. There is probable degenerative type tearing of the entire glenoid labrum. Osseous Structures: There are subcortical cystic changes in the bare area of the humerus. No additional gross bone marrow edema or abnormal infiltrating signal present. Spino-glenoid Notch: Normal. Quadrilateral Space: Normal. Other: There is moderate fluid signal in the subacromial/subdeltoid bursa consistent with bursitis. There is extensive fluid signal in the subcoracoid bursa. The glenohumeral ligaments appear intact without thickening. MR/MR shoulder LT wo con IMPRESSION: Somewhat limited examination due to motion and poor external rotation of the humeral head. 1. Moderate degenerative arthritis within the glenohumeral and AC joints. Regions of subchondral bone plate edema within the glenoid. Small joint effusion. 2. Suspect 50% undersurface tearing of the supraspinatus tendon, with associated 30% medial footplate attachment rim rent type tearing. No full-thickness tear or tendinous retraction. 3. There is high-grade insertional tearing of the supraspinatus tendon, although quantification is difficult due to motion. No full-thickness tear or tendinous retraction. 4. Suspect partial insertional tearing of the subscapularis tendon although evaluation is limited due to internal rotation and motion. 5. Long head of the biceps tendon is medially subluxed from the groove superiorly, and demonstrates irregular tearing superiorly and within the rotator interval. 6. There is moderate fluid signal in the subacromial/subdeltoid bursa consistent with bursitis. 7. There is more extensive fluid in the subcoracoid bursa. Electronically signed by: Abilio Morales MD 07/08/2024 09:41 AM EDT
== END 2024-07-06 09:57 | disposition home or self-care (01) ==
LOC: HO.MRI 09:56
PROVIDERS: PCP Internal Medicine; Visit Provider Orthopaedic Surgery
DX: M25.312 Other instability, left shoulder (principal)
CPT/HCPCS: 73221

== ENCOUNTER → 2024-07-06 10:13 | Outpatient (BNV) | payer MEDICARE, SELFPAY | PROVIDERS: PCP Internal Medicine; Visit Provider Radiology Diagnostic Radiology | DX: M25.512 Pain in left shoulder (principal) | CPT/HCPCS: 73221 ==

== ENCOUNTER 2024-08-08 13:26 | Outpatient (AMB) | payer MEDICARE, SELFPAY ==
[2024-08-08 13:32] VITALS: BMI 22.4
--- NOTE | 2024-08-08 13:32 | A.OFFVIS_ITS ---
Vital Signs 08/08/24 13:32 Height 6 ft Weight 165 lb BMI 22.4 Intake Visit Reasons: Left shoulder pain and weakness Intake Note: Syd is a 73 year old right hand dominant male who presents with complaints of progressively worsening left shoulder pain and weakness. The patient did undergo right shoulder arthroscopic surgery on 04/26/2024. He reports minimal discomfort in his right shoulder. He describes his left shoulder pain as sharp in nature. Most of the pain is along the lateral aspect of his left shoulder. He reports weakness when lifting his left hand above shoulder height. His left shoulder pain and weakness have gotten worse over the last year in spite of continued non operative treatments. He has done physical therapy exercises which aggravated his pain. He has also tried Tylenol and anti-inflammatory medicines which gave him minimal relief. He has failed the last 6 weeks of conservative treatment. Allergies latex [LATEX] Allergy (Mild, Verified 08/08/24 13:33) skin redness with extended use of latex gloves tamsulosin Adverse Reaction (Severe, Verified 08/08/24 13:33) Dizziness [facility] Medical History BPH (benign prostatic hyperplasia) Arthritis Snores Multiple adenomatous polyps Surgical History Hx of colonoscopy No history of previous surgery Family History Mother No problems noted. Father No problems noted. Social History Household Members: Spouse Housing: House Are you a primary primary care coordinator to a significant other at home: No Do you presently have visiting nurse or other home services: No 75 years or older and lives alone: No Alcohol intake: current Alcohol intake frequency: does not drink Patient Tobacco Use Status: Never used Tobacco e-Cigarette/Vaping Use: Never Used Second Hand Smoke Exposure: No service: No Current occupational status: retired Physical Exam Vital Signs: BMI result Body Mass Index 22.4 Const Other: Well-nourished well-developed very friendly male awake alert and oriented x3 in no acute distress Extrem Other: Bilateral upper extremity examination shows good capillary refill, no skin lesions noted, normal sensation light touch Left shoulder examination shows slightly decreased range of motion when compared to his right shoulder, 4/5 strength with supraspinatus testing, positive impingement signs, tenderness over his acromioclavicular joint, no instability Results Reviewed Results Reviewed: MRI of the patient's left shoulder show severe acromioclavicular joint narrowing, a type 2 acromion, signal change within his supraspinatus tendon most likely due to a small full-thickness tear Assessment & Plan Assessment & Plan (1) Rotator cuff insufficiency of left shoulder: Code(s): M25.312 - Other instability, left shoulder Category: Medical Plan Mr. Enrique presents with progressively worsening left shoulder pain and weakness due to impingement syndrome, acromioclavicular joint arthritis and most likely a small full-thickness rotator cuff tear. I had a lengthy discussion with the patient regarding the treatment options. At this point he has failed continued non operative treatments. The risks and benefits of left shoulder surgery were discussed at length with the patient. The patient wishes to proceed with surgery. Surgery will involve left shoulder arthroscopic distal clavicle excision, left shoulder arthroscopic acromioplasty and most likely left shoulder mini open rotator cuff repair. The patient will be scheduled for next available date. He will follow up as instructed. Feel free to call me at any time should questions regarding his orthopedic management arise. I spent 22 minutes in reviewing the patient's records and imaging studies, seeing the patient and documenting in the medical record. Coding Level of Care Code Est Pt Level 3 (54465) Complex EM visit Add On G2211 Diagnoses Rotator cuff insufficiency of left shoulder M25.312
== END 2024-08-08 14:03 | disposition home or self-care (01) ==
LOC: HO.HOS 13:26
PROVIDERS: Visit Provider Orthopaedic Surgery
DX: M25.312 Other instability, left shoulder (principal)
CPT/HCPCS: 99214; G2211

== ENCOUNTER → 2024-08-08 13:26 | Outpatient (BNVA) | payer MEDICARE, SELFPAY | PROVIDERS: Visit Provider Orthopaedic Surgery | DX: M25.512 Pain in left shoulder (principal); M25.312 Other instability, left shoulder | CPT/HCPCS: 99212 ==

== ENCOUNTER 2024-08-29 09:14 | Outpatient (AMB) | payer MEDICARE, SELFPAY ==
--- NOTE | 2024-08-29 09:14 | A.OFFVIS_ITS ---
Intake Visit Reasons: Left shoulder pain and weakness Intake Note: Syd is a 73 year old right hand dominant male who presents with complaints of progressively worsening left shoulder pain and weakness. The patient did undergo right shoulder arthroscopic surgery on 04/26/2024. He reports minimal discomfort in his right shoulder. He describes his left shoulder pain as sharp in nature. Most of the pain is along the lateral aspect of his left shoulder. He reports weakness when lifting his left hand above shoulder height. His left shoulder pain and weakness have gotten worse over the last year in spite of continued non operative treatments. He has done physical therapy exercises which aggravated his pain. He has also tried Tylenol and anti-inflammatory medicines which gave him minimal relief. He has failed the last 6 weeks of conservative treatment. The patient states that his pain has gotten worse since his last office visit. Allergies latex (LATEX) Allergy (Mild, Verified 08/08/24 13:33) skin redness with extended use of latex gloves tamsulosin Adverse Reaction (Severe, Verified 08/08/24 13:33) Dizziness Medication List - Last Reconciled 08/29/24 by Jean Carlos Hardy MD ibuprofen-acetaminophen 125-250 mg 2 tabs PO Q8H PRN PFSH Medical History BPH (benign prostatic hyperplasia) Arthritis Snores Multiple adenomatous polyps Surgical History Hx of colonoscopy No history of previous surgery Family History Mother No problems noted. Father No problems noted. Social History Household Members: Spouse Housing: House Are you a primary healthcare sales representative to a significant other at home: No Do you presently have visiting nurse or other home services: No 75 years or older and lives alone: No Alcohol intake: current Alcohol intake frequency: does not drink Patient Tobacco Use Status: Never used Tobacco e-Cigarette/Vaping Use: Never Used Second Hand Smoke Exposure: No service: No Current occupational status: retired Physical Exam Const Other: No physical examination was performed today, tele health visit Telehealth Telehealth Telehealth Platform: Telephone Location of provider rendering services: practice address Location of patient: address on file Patient Identification confirmed using: Name, : Yes Telehealth method: voice only Patient verbally consented to treatment: Yes Patient verbally consented to billing insurance company: Yes Patient informed of any privacy concerns related to visit: Yes Minutes spent on Phone/Video with Pt.: 12 Results Reviewed Results Reviewed: MRI of the patient's left shoulder show severe acromioclavicular joint narrowing, a type 2 acromion, signal change within the supraspinatus tendon due to partial-thickness tearing versus a small full-thickness tear Assessment & Plan Assessment & Plan (1) Rotator cuff insufficiency of left shoulder: Code(s): M25.312 - Other instability, left shoulder Category: Medical Plan Mr. Enrique presents with progressively worsening left shoulder pain and weakness due to impingement syndrome, acromioclavicular joint arthritis and a partial-thickness rotator cuff tear versus a small full-thickness tear. I had a lengthy discussion with the patient regarding the treatment options. At this point he has failed continued non operative treatments. The risks and benefits of left shoulder surgery were discussed at length with the patient. The patient wishes to proceed with surgery. Surgery will involve left shoulder arthroscopic distal clavicle excision, left shoulder arthroscopic acromioplasty and most likely left shoulder mini open rotator cuff repair. The patient will follow-up as instructed. Feel free to call me at any time should questions regarding his orthopedic management arise. Coding Level of Care Code Tele Est Pt Level 2 (96394) Complex EM visit Add On G2211 Diagnoses Rotator cuff insufficiency of left shoulder M25.312
== END 2024-08-29 09:17 | disposition home or self-care (01) ==
LOC: HO.HOS 09:14
PROVIDERS: PCP Internal Medicine; Visit Provider Orthopaedic Surgery
DX: M25.312 Other instability, left shoulder (principal)
CPT/HCPCS: 99212; G2211

== ENCOUNTER → 2024-09-20 11:00 | Outpatient (BNV) | payer MEDICARE, SELFPAY | PROVIDERS: PCP Internal Medicine; Visit Provider Internal Medicine Cardiovascular Disease | DX: R00.1 Bradycardia, unspecified (principal) | CPT/HCPCS: 93010 ==

== ENCOUNTER 2024-09-27 08:04 | Day surgery (SDC) | payer MEDICARE, SELFPAY ==
[2024-09-20 10:26] VITALS: BP 153/86; PULSE 58; RESP 18; O2SAT 96; BMI 23.2
--- NOTE | 2024-09-20 11:00 | ECG_ITS ---
Test Reason : pre op Blood Pressure : */* mmHG Vent. Rate : 59 BPM Atrial Rate : 59 BPM P-R Int : 198 ms QRS Dur : 94 ms QT Int : 402 ms P-R-T Axes : 70 47 53 degrees QTcB Int : 397 ms Sinus bradycardia Otherwise normal ECG When compared with ECG of 29-May-2018 15:38, No significant change was found Referred By: Katalina Umanzor Electronically Signed By: Damián Sanchez
[2024-09-20 11:56] LABS: Hematocrit 44.0 % (42.0-52.0); Hemoglobin 14.5 g/dl (14.0-18.0); Mean Corpuscular HGB Conc 33.0 g/dl (31.0-36.0); Mean Corpuscular Hemoglobin 29.8 pg (27.0-33.0); Mean Corpuscular Volume 90.5 fL (80.0-98.0); NRBC Abs Auto 0.000 X10*3/uL (0.0-0.012); NRBC Pct Auto 0.0 /100WBC (0.0-0.2); Platelet Count 210 X10*3/uL (160-400); Red Blood Count 4.86 X10*6/uL (4.60-5.80); White Blood Count 5.3 X10*3/uL (4.8-10.8)
[2024-09-20 12:18] LABS: Anion Gap 13 (12-20); Blood Urea Nitrogen 17 mg/dL (9-16); Calcium 9.0 mg/dL (8.4-10.2); Carbon Dioxide 30 mmol/L (22-29); Chloride 104 mmol/L (96-108); Creatinine Clr Calc Pharmacy 88.0; Estimated Glomerular Filt Rate > 60; Potassium 4.7 mmol/L (3.3-5.1); Sodium 142 mmol/L (135-145)
[2024-09-27] VITALS (11 sets, daily range): BP systolic 104–140; BP diastolic 52–75; PULSE 58–65; RESP 16–18; TEMP 36.2–36.7; O2SAT 92–98
[2024-09-27] MEDS: Lactated Ringers 1,000 ML 100 ML IVCONT (08:31)
--- NOTE | 2024-09-27 09:47 | P.CONAN_ITS ---
Documented by User: Katalina Umanzor NP 09/24/24 14:27 HPI - Anesthesia Eval Consult details Narrative: 73 yr old male for left Shoulder Arthroscopy,distal clavicle s/p right shoulder arthroscopy 03/2024- went well No recent illness No CP/SOB with moderate physical activity Last seen by PCP in 2022 [facility] Active Problems Active Problems: All Active Problems Left shoulder pain (Acute) Rotator cuff insufficiency of left shoulder (Acute) Impingement of right shoulder (Acute) Right shoulder pain (Acute) Tubulovillous adenoma polyp of rectum (Acute) Cecal polyp (Acute) Encounter for screening colonoscopy (Acute) Nocturia associated with benign prostatic hyperplasia (Acute) Physical exam (Acute) Skin lesion (Acute) Scrotal cyst (Acute) Headache (Acute) Sinusitis (Acute) Labyrinthine disorder (Acute) Multiple adenomatous polyps (Acute) Past Medical History Medical History (Updated 09/20/24 @ 10:25 by Opal Barry RN) COVID-19 BPH (benign prostatic hyperplasia) Arthritis Snores Multiple adenomatous polyps Family History Family History Mother No problems noted. Father No problems noted. Family history of problems with anesthesia: No Surgical History Surgical History (Updated 09/20/24 @ 10:16 by Opal Barry RN) Hx of arthroscopy of shoulder Hx of colonoscopy History of Problems with Anesthesia: No Social History Social History Household Members: Spouse Housing: House Are you a primary wound care physician to a significant other at home: No Do you presently have visiting nurse or other home services: No Alcohol intake: current Alcohol intake frequency: 0-2 drinks per day Patient Tobacco Use Status: Never used Tobacco e-Cigarette/Vaping Use: Never Used Second Hand Smoke Exposure: No Use of substances other than those prescribed or required for medical reasons: Yes Substance Use Frequency: Occasionally Have you been hit, kicked, punched, or otherwise hurt by someone within the past year? If so, by whom?: No Are you DNR?: No Advance Directives: No Advance Directives Information Provided: Yes Advance Directives on File: No Poor oral hygiene: Yes service: No Current occupational status: retired Meds Allergies Allergy/AdvReac Type Severity Reaction Status Date / Time latex (LATEX) Allergy Mild skin Verified 08/08/24 13:33 redness with extended use of latex gloves tamsulosin AdvReac Severe Dizziness Verified 08/08/24 13:33 Home Medications ?Medication ?Instructions ?Recorded ?Confirmed ?Last Taken ?Type ibuprofen 200 mg tablet 200 mg PO Q6H PRN Pain 09/2009/20/24 Unknown History valacyclovir 1 gram tablet 1,000 mg PO BID PRN Outbrea k 09/20/24 09/20/24 Unknown History Exam Height,Weight and Vital Signs: Height 6 ft Weight 77.564 kg Last Vital Signs Pulse 58 09/20/24 10:26 Resp 18 09/20/24 10:26 BP 153/86 H 09/20/24 10:26 Pulse Ox 96 09/20/24 10:26 O2 Del Method Room Air 09/20/24 10:26 Pertinent Lab Results Pertinent Lab Results: Laboratory Tests 09/20/24 11:08 WBC 5.3 RBC 4.86 Hgb 14.5 Hct 44.0 Plt Count 210 Sodium 142 Potassium 4.7 BUN 17 H Creatinine 0.82 Narrative Narrative: EKG 09/20/24 Vent. Rate : 59 BPM Atrial Rate : 59 BPM P-R Int : 198 ms QRS Dur : 94 ms QT Int : 402 ms P-R-T Axes : 70 47 53 degrees QTcB Int : 397 ms Sinus bradycardia Otherwise normal ECG When compared with ECG of 29-May-2018 15:38, No significant change was found Airway Mallampati Class: I TM Dist: >3cm Neck ROM: Full Loose/Missing/Broken Teeth: No and Lower (crown left) Heart: RRR Lungs: CTAB Assessment and Plan Final Anesthetic Review Family History of Problems with Anesthesia: No History of Problems with Anesthesia: No Documented by User: Louann Marie DO 09/27/24 09:50 [facility] Past Medical History Medical History (Updated 09/20/24 @ 10:25 by Opal Barry RN) COVID-19 BPH (benign prostatic hyperplasia) Arthritis Snores Multiple adenomatous polyps Family History Family History Mother No problems noted. Father No problems noted. Family history of problems with anesthesia: No Surgical History Surgical History (Updated 09/20/24 @ 10:16 by Opal Barry RN) Hx of arthroscopy of shoulder Hx of colonoscopy History of Problems with Anesthesia: No Social History Social History Household Members: Spouse Housing: House Are you a primary wound care physician to a significant other at home: No Do you presently have visiting nurse or other home services: No Alcohol intake: current Alcohol intake frequency: 0-2 drinks per day Patient Tobacco Use Status: Never used Tobacco e-Cigarette/Vaping Use: Never Used Second Hand Smoke Exposure: No Use of substances other than those prescribed or required for medical reasons: Yes Substance Use Frequency: Occasionally Have you been hit, kicked, punched, or otherwise hurt by someone within the past year? If so, by whom?: No Are you DNR?: No Advance Directives: No Advance Directives Information Provided: Yes Advance Directives on File: No Poor oral hygiene: Yes service: No Current occupational status: retired Meds Allergies Allergy/AdvReac Type Severity Reaction Status Date / Time latex (LATEX) Allergy Mild skin Verified 08/08/24 13:33 redness with extended use of latex gloves tamsulosin AdvReac Severe Dizziness Verified 08/08/24 13:33 Home Medications ?Medication ?Instructions ?Recorded ?Confirmed ?Last Taken ?Type ibuprofen 200 mg tablet 200 mg PO Q6H PRN Pain 09/2009/20/24 Unknown History valacyclovir 1 gram tablet 1,000 mg PO BID PRN Outbrea k 09/20/24 09/20/24 Unknown History Exam Exam Date and Time: 09/27/24 0945 Airway Mallampati Class: I TM Dist: >3cm Neck ROM: Full Loose/Missing/Broken Teeth: No (patient denies any loose or broken teeth) Heart: S1S2 Assessment and Plan Assessment Anesthesia Assessment: Anesthesia Plan Discussed and Chart Reviewed Final Anesthetic Review Family History of Problems with Anesthesia: No History of Problems with Anesthesia: No NPO: Yes ASA Class: I Final Preanesthetic Review: No Changes in Pt Med Stat, Meds/Allgs Chart Reviewed, Consent Obtained/Reviewed and Anes Risks/Benef Reviewed Patient Risk: Low Procedure Risk: Intermediate Anesthetic Plan Anesthetic Plan: GA, Regional Block (left brachial plexus block) and Agree w/ Assess. and Plan Disposition: Standard PACU
--- NOTE | 2024-09-27 12:19 | PM.OP ---
Brief Operative Note Date of Service: 09/27/24 Pre-op diagnosis: Left shoulder impingement syndrome, left shoulder acromioclavicular joint arthritis, left shoulder rotator cuff tear Post-op diagnosis: same Procedure: Left shoulder arthroscopic distal clavicle excision, left shoulder arthroscopic acromioplasty, left shoulder mini open rotator cuff repair Implants: 1 suture anchor ([employer] Twinfix anchor with #2 Ultrabraid suture) Surgeon: Jean Carlos Hardy MD Anesthesia: GETA and regional Was an Documentation Writer used for this Procedure?: No Estimated blood loss (mL): 20 Pathology: none sent Condition: stable Disposition: PACU
--- NOTE | 2024-09-27 12:20 | P.OP_ITS ---
Operative Note Operative Note Date of Service: 09/27/24 Narrative: After the patient was identified as Syd Enrique and his left shoulder was initialed by myself the patient was brought to the holding area where a left shoulder interscalene regional block was performed by the anesthesiologist in routine fashion. The patient was then brought to the operating room where general anesthesia was induced by the anesthesiologist in routine fashion. The patient was given 2 g of IV Ancef preoperatively for infection prophylaxis. Examination under anesthesia of the patient's left shoulder showed full passive range of motion of the patient's left shoulder when compared to the right. The patient was gently positioned in the beach chair position with all bony prominences well padded. The patient's left shoulder region and upper extremity were prepped and draped in sterile fashion. A formal time-out was completed. A #11 scalpel blade was used to make a posterior portal 2 cm inferior and 1 cm medial to the posterolateral corner of the acromion. Blunt trocar technique was used to enter the glenohumeral joint in routine fashion. An anterior portal was made just lateral to the coracoid process after proper positioning was confirmed using a spinal needle. Diagnostic arthroscopy showed minimal degenerative changes of the glenoid and humeral head articular surfaces. There was a full- thickness tear of the supraspinatus tendon. There was degenerative fraying of the biceps tendon measuring approximately 25% of the tendon width. The frayed fibers were debrided using the arthroscopic shaver. Following the debridement the remainder of the biceps fibers were intact. There was no inflammation of the anterior joint capsule. The arthroscope was then placed from the posterior portal into the subacromial space. A lateral portal was made 2 fingerbreadths lateral to the anterior lateral corner of the acromion. The ArthroCare Wand was used to ablate soft tissues along the undersurface of the acromion as well as to excise the coracoacromial ligament. There was a sharp spur along the undersurface of the acromion which was removed using the hooded bur. The arthroscope was then placed into the lateral portal and the acromioplasty was completed with the bur in the posterior portal using the posterior aspect of the acromion as a cutting block. The ArthroCare Wand was then brought in through the anterior portal and was used to ablate soft tissues along the acromiocl avicular joint and distal clavicle. The posterior and superior ligamentous structures were left intact. A distal clavicle excision of 8 mm was performed using the hooded bur. Any remaining bursal tissue was removed using the arthroscopic shaver. The subacromial space was irrigated and then drained. All arthroscopic instruments were removed. Sterile gloves were changed and the shoulder was once again prepped with Betadine. A #15 scalpel blade was used to extend the lateral portal to the lateral edge of the acromion. The subacromial tissues were dissected using electrocautery down to the superficial deltoid fascia. The trocar split in the anterior raphe of the deltoid was then extended to the lateral edge of the acromion using electrocautery and curved Bird scissors. Any remaining bursal tissue was removed using curved Bird scissors. Subacromial and subdeltoid adhesions were bluntly dissected. The undersurface of the acromion was palpated and it was smooth. A #2 Ethibond tag suture was placed into the supraspinatus tendon. The tendon was easily mobilized to its insertion point on the glenoid. The wound was irrigated with copious amounts of normal saline solution. One suture anchor was placed into the greater tuberosity in routine fashion. The rotator cuff repair was then performed using horizontal mattress sutures under minimal tension with the patient's elbow at their side. Following the repair the shoulder was taken through a full range of motion. The repair was stable. The wound was irrigated with copious amounts of normal saline solution. The superficial and deep deltoid fascia were closed with #1 Vicryl [id number] interrupted suture. The wound was once again irrigated. The subcutaneous tissues were closed with 2-0 Vicryl interrupted suture. The skin was closed with 3-0 Prolene subcuticular suture and Steri- Strips. The anterior and posterior portals were closed with 3-0 nylon interrupted suture. Dry sterile dressing was placed over all incisions. The patient's left upper extremity was placed into a sling. The patient was awoken and extubated in the operating room. The patient was transferred to the recovery room in stable condition.
== END 2024-09-27 14:22 | disposition home or self-care (01) ==
PROVIDERS: Nurse Practitioner; PCP Internal Medicine; Visit Provider Orthopaedic Surgery
PROC: (CPT 23412; principal; 2024-09-27 10:00)
DX: M75.102 Unspecified rotator cuff tear or rupture of left shoulder, not specified as traumatic (principal); M75.42 Impingement syndrome of left shoulder; M19.012 Primary osteoarthritis, left shoulder; M25.512 Pain in left shoulder; M25.312 Other instability, left shoulder; Z79.1 Long term (current) use of non-steroidal anti-inflammatories (NSAID); Z91.040 Latex allergy status
CPT/HCPCS: 23412; 29824; 29826; 36415; 80048; 85027; 93005; C1713; J0131; J0690; J0696; J1100; J2003; J2250; J2405; J2704; J2795

== ENCOUNTER → 2024-09-27 08:04 | Outpatient (BNV) | payer MEDICARE, SELFPAY | PROVIDERS: PCP Internal Medicine; Visit Provider Orthopaedic Surgery | DX: M75.42 Impingement syndrome of left shoulder (principal); M19.012 Primary osteoarthritis, left shoulder; M75.122 Complete rotator cuff tear or rupture of left shoulder, not specified as traumatic; Z98.890 Other specified postprocedural states | CPT/HCPCS: 23412; 29824 ==

== ENCOUNTER 2024-10-01 14:52 | Outpatient (AMB) | payer MEDICARE, SELFPAY ==
[2024-10-01 14:59] VITALS: BP 132/70; PULSE 65; RESP 18; TEMP 36.1; O2SAT 97; BMI 23.2
--- NOTE | 2024-10-01 14:59 | A.OFFPC_ITS ---
Vital Signs 10/01/24 14:59 Height 6 ft Weight 171 lb BMI 23.2 BP 132/70 Blood Pressure Location Rt brachial Position Sitting Respiration 18 Pulse 65 Pulse Source Pulse Oximeter Temp 97 F Temp Source Temporal Artery Scan Pulse Oximetry (%) 97 Oxygen Delivery Method Room Air Intake Visit Reasons: re-establish Dr Lewis patient not seen since 2020 Latex Foam Worker Required: No Accompanied by: Self / Same As Patient Allergies latex (LATEX) Allergy (Mild, Verified 10/23/24 09:47) skin redness with extended use of latex gloves tamsulosin Adverse Reaction (Severe, Verified 10/23/24 09:47) Dizziness Tobacco use date assessed: 10/01/24 Fall risk assessment: No Falls in past year Last assessed Fall Risk: 10/01/24 Dental Screening Dental Screen Date: 10/01/24 Did you have a dental visit in the last 12 months?: Yes Did you have a dental problem in the last 6 months where you did not have access to dental care?: No Was dental information given to patient?: Patient has dentist HPI re-establish Dr Lewis patient not seen since 2020 HPI Details Patient is presenting to re-establish care Previous PCP: Dr. Lewis Last visit: Last PE: Specialist: Urology q6 months, Dermatology DR. Roth q6 months, orthopedics OBGYN:n/a Past medical history: coloonoscopy: had some polyps Medications: Family HX: Problem: The patient is a 73-year-old male presenting to reestablish care, wellness check and management of chronic conditions. The patient has a history of herpes simplex keratitis, which is a viral infection affecting the cornea. This condition has been present since childhood, initially manifesting as cold sores, and later affecting the eyes during the COVID-19 pandemic. The patient experiences flare-ups occasionally and manages them with valacyclovir as needed. The patient also has prostate hypertrophy, for which surgical intervention has been suggested by his urologist. The patient is considering alternative procedures due to concerns about potential side effects impacting his quality of life. The patient underwent arthroscopic surgery for shoulder osteoarthritis, with one surgery completed in March and another recently. He has been experiencing shoulder issues for some time, which have affected his ability to engage in physical activities such as gym workouts. The patient reports a history of colon polyps and is scheduled for a follow-up colonoscopy. He has undergone multiple colonoscopies in the past due to the presence of polyps, which could potentially become cancerous. The patient maintains an active lifestyle, including swimming, biking, and hiking, and adheres to a healthy diet. He has been consistent with these activities for over 35 years, contributing to his overall good health. [facility] Medical History (Updated 10/28/24 @ 04:02 by RADHA Pham) Herpes simplex keratitis COVID-19 BPH (benign prostatic hyperplasia) Arthritis Snores Multiple adenomatous polyps Surgical History Hx of arthroscopy of shoulder Hx of colonoscopy Family History Mother No problems noted. Father No problems noted. Social History Household Members: Spouse Housing: House Are you a primary director of health care marketing to a significant other at home: No Do you presently have visiting nurse or other home services: No 75 years or older and lives alone: No Alcohol intake: current Alcohol intake frequency: 0-2 drinks per day Patient Tobacco Use Status: Never used Tobacco e-Cigarette/Vaping Use: Never Used Second Hand Smoke Exposure: No service: No Current occupational status: retired Cognitive needs: No Hearing needs: No Vision needs: Yes Questionnaire PHQ-9 Over the last 2 weeks, how often have you been bothered by any of the following problems? 1. Little interest or pleasure in doing things: not at all 2. Feeling down, depressed, or hopeless: not at all 3. Trouble falling or staying asleep, or sleeping too much: not at all 4. Feeling tired or having little energy: not at all 5. Poor appetite or overeating: not at all 6. Feeling bad about yourself - or that you are a failure or have let yourself or your family down: not at all 7. Trouble concentrating on things, such as reading the newspaper or watching television: not at all 8. Moving or speaking so slowly that other people could have noticed. Or the opposite - being so fidgety or restless that you have been moving around a lot more than usual: not at all 9. Thoughts that you would be better off or of hurting yourself in some way: not at all Total score: 0 Depression Screening Interpretation: Negative Depression Screening Done: Yes 82345 - PHQ-9 Billing: Yes Source: Developed by Drs. Miguelito Partida, Anamaria Torres, Bacilio Berkowitz and colleagues, with an educational dalton from [employer]. Thrive Questionnaire Date Thrive assessed: 10/01/24 I am a: Patient What is your living situation today?: I have a steady place to live Within the past 12 months, did the food you bought not last and you didn't have the money to get more?: Never true Within the past 12 months, did you worry whether your food would run out before you got money to buy more?: Never true Do you have trouble paying for medicines?: No Do you have trouble getting transportation to medical appointments?: No Do you have trouble paying your heating and electricity bill?: No Do you have trouble taking care of your child, family member or friend?: No Do you have trouble with day-to-day activities such as bathing, preparing meals, shopping, managing finances, etc.?: No Are you currently unemployed and looking for a job?: No Are you interested in more education?: No Please select the resources that you would like help with: None Currently or been in a relationship where the following occur: No concerns reported and I choose not to answer THRIVE Score: 0 AUDIT C Alcohol Use Questionnaire (AUDIT-C) 1. How often do you have a drink containing alcohol?: 4 or more times a week 2. How many drinks containing alcohol do you have on a typical day when you are drinking?: 1 or 2 3. How often do you have six or more drinks on one occasion?: Never Total Score: 4 HEMALATHA-7 AMB Questionnaire HEMALATHA-7 Date HEMALATHA - 7 assessed: 10/01/24 Feeling nervous, anxious, or on edge: 0 = Not at all Not being able to stop or control worryin = Not at all Worrying too much about different things: 0 = Not at all Trouble relaxin = Not at all Being so restless that it is hard to sit still: 0 = Not at all Becoming easily annoyed or irritable: 0 = Not at all Feeling afraid as if something awful might happen: 0 = Not at all Total HEMALATHA-7 score (0-4 normal; 5-9 mild; 10-14 moderate; 15-21 severe): 0 Source: Developed by Drs. Miguelito Partida, Anamaria Torres, Bacilio Berkowitz and colleagues, with an educational dalton from [employer]. HEMALATHA-7 Assessment Billing HEMALATHA-7 Assessment Tool: HEMALATHA-7 Assessment 44669 Review of Systems Const Denies headache(s) Eyes Denies loss of vision ENT Denies vertigo, Denies dizziness, Denies headache(s) and Denies sore throat Card Denies chest pain, Denies leg edema and Denies lightheadedness Resp Denies cough, Denies hemoptysis and Denies wheezing GI Denies abdominal pain, Denies melena, Denies constipation, Denies diarrhea and Denies vomiting Denies dysuria, Denies urinary frequency and Denies urinary urgency Musc Reports arthralgias (Left shoulder), Denies joint swelling, Reports numbness (Fingers) and Denies tingling Neuro Denies Abnormal speech present, Denies behavioral changes, Denies vertigo, Denies dizziness, Denies headache(s), Denies loss of vision, Denies memory loss, Reports numbness (Fingers) and Denies tingling Psych Denies anxiety, Denies behavioral changes, Denies depression, Denies memory loss and Denies panic attacks Dax/Lymph Denies easy bleeding and Denies easy bruising Aller/Immun Denies wheezing Physical exam (Primary Care) Vital Signs: Last Vital Signs Temp 97 F 10/01/24 14:59 Pulse 65 10/01/24 14:59 Resp 18 10/01/24 14:59 BP 132/70 10/01/24 14:59 Pulse Ox 97 10/01/24 14:59 Oxygen Delivery Method Room Air 10/01/24 14:59 BMI result Body Mass Index 23.2 Tobacco/Smoking Status: Tobacco use Status Tobacco use date assessed 10/01/24 10/01/24 15:01 Patient Tobacco Use Status Never used Tobacco 10/01/24 15:01 e-Cigarette/Vaping Use Never Used 10/01/24 15:01 PHQ-9: PHQ-9 Score PHQ-9: Total score 0 10/02/24 07:56 Depression Screening Interpretation: Negative Thrive Assessment: Date of Thrive Assessment Date Thrive assessed 10/01/24 10/01/24 15:01 Currently or been in a relationship where the following occur: No concerns reported and I choose not to answer Const General: healthy appearing, no acute distress, alert and awake Nutritional Appearance: well nourished Orientation/consciousness: oriented to person, oriented to place and oriented to time HENMT Ears: TM's normal bilaterally General nose exam: Normal nasal mucous membranes and turbinates present Eyes Conjunctivae: conjunctivae normal Sclerae: sclerae normal Pupils: Equal, round and reactive pupils present Neck Neck: Yes no lymphadenopathy and Yes no JVD Thyroid: Thyroid normal Carotids: no bruits Resp Effort & Inspection: normal respiratory effort and not tachypneic Auscultation: no crackles, no rales, no rhonchi and no wheezes Cardio Rate: regular rate Rhythm: regular rhythm Heart sounds: no murmurs and normal S1 and S2 GI Palpation (GI): Soft to palpation, nontender, no hepatomegaly and no splenomegaly Auscultation: normal bowel sounds General: Yes no CVA tenderness Back/Spine/Pelvis Back: no CVA tenderness Thoracic/Lumbar Spine: thoracic and lumbar spine normal to inspection Skin General skin exam: no rashes or lesions noted and dry skin Neuro General: oriented to person, oriented to place and oriented to time Cranial nerves: Yes Equal, round and reactive pupils present Speech: No Abnormal speech present Gait exam (Neuro): Normal gait present Motor exam (neuro): no tremor noted Extrem Right upper extremity: full ROM Left upper extremity: full ROM and shoulder/upper arm Details: tenderness; no swelling Right lower extremity: full ROM; no edema Left lower extremity: full ROM; no edema Psych Mental Status: mental status grossly normal Speech and movement: Normal speech and movement present Affect: normal affect Attitude: cooperative Thought process: Normal thought process present Coding Level of Care Code New Pt Level 4 (59766) Diagnoses Left shoulder pain, unspecified chronicity M25.512 Chronicity: unspecified Pure hypercholesterolemia E78.00 Hyperlipidemia type: pure hypercholesterolemia 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 Patient have stiffness and limited range of motion in left shoulder. Restricted from region above head, weight restriction as well. Follow up with Orthopedics as scheduled. (2) HLD (hyperlipidemia): Code(s): E78.5 - Hyperlipidemia, unspecified Category: Medical Qualifiers: Hyperlipidemia type: pure hypercholesterolemia Qualified Code(s): E78.00 - Pure hypercholesterolemia, unspecified Plan: Discussed lifestyle modifications including dietary changes and physical activity We will order labs to evaluate (3) Tubulovillous adenoma polyp of rectum: Comment: Reviewed previous colonoscopy/pathology 2018 discusswd polyp, [id number] r ecommendation Code(s): D12.8 - Benign neoplasm of rectum Category: Medical Plan: Plans to repeat colonoscopy the end of this year (4) Herpes simplex keratitis: Code(s): B00.52 - Herpesviral keratitis Category: Medical Plan: Continue valacyclovir 1000 mg b.i.d. p.r.n.. Follow up with Ophthalmology as scheduled (5) Prostate hypertrophy: Code(s): N40.0 - Benign prostatic hyperplasia without lower urinary tract symptoms Category: Medical Plan: The patient also has prostate hypertrophy, for which surgical intervention has been suggested by his urologist. The patient is considering alternative procedures due to concerns about potential side effects impacting his quality of life. Follow up with Urology as scheduled Orders: Orders Comprehensive [place]ta. Panel Fast 10/08/24 Z00.00 - Encounter for general adult medical examination without abnormal findings Vitamin D 25-OH Total 10/08/24 N40.1 - Benign prostatic hyperplasia with lower urinary tract symptoms, R35.1 - Nocturia Lipid Panel 10/08/24 Z00.00 - Encounter for general adult medical examination without abnormal findings PSA,Total (Free>4and<10) 10/08/24 N40.1 - Benign prostatic hyperplasia with lower urinary tract symptoms, R35.1 - Nocturia
--- OUTSIDE RECORDS SUMMARY | 2024-10-01 15:25 | XMS_ITS | Clinical Summary ---
Author Organization [facility] Address [address] [place] [address] Phone Care Team Providers Care Rate Manager Name Role Phone Black Lewis MD Primary Care Provider [phone] Medications No known medications Active Problems No known active problems Social History Tobacco Use Types Packs/Day Years Used Date Smoking Tobacco: Never Smokeless Tobacco: Never Alcohol Use Standard Drinks/Week Comments Yes 0 (1 standard drink = 0.6 oz pur e alcohol) 7xweek Education Answer Date Recorded Are you interested in more education? Not on carlyle e 06/25/2022 Are you concerned about learning? Not on file 06/25/2022 No 06/25/2022 No 06/25/2022 Digital Access Answer Date Recorded No 07/26/2022 No 07/26/2022 Reliable internet access at home? Not on file 07/26/2022 Device with a working camera? Not on file Sex and Gender Information Value Date Recorded Sex Assigned at Not on file Legal Sex Male 12:42 PM EST Gender Identity Not on file Sexual Orientation Not on file Plan of Treatment Health Maintenance Due Date Last Done Comments Adult Td,Tdap Booster 1950 LIPID PANEL 1950 DEPRESSION SCREENING 1962 HEPATITIS C SCREENING 1968 COLOGUARD 12/23/1995 COLONOSCOPY 12/23/1995 COLORECTAL CANCER SCREENING 12/23/1995 FIT TEST 12/23/1995 FOBT 12/23/1995 SIGMOIDOSCOPY 12/23/1995 VIRTUAL COLONOSCOPY 12/23/1995 PNEUMOCOCCAL VACCINES (50+ y ears) (1 of 1 - PCV) 2000 ZOSTER VACCINES (1 of 2) 2000 COVID-19 VACCINE ( - 2023-2 5 season) 2023 RSV VACCINE (1 - 1-dose 75+ series) 2025 SMOKING STATUS SCREENING (On ce After 26 Yrs) Completed 06/08/2021 HEPATITIS A VACCINES Aged Out No long er eligible based on patient's age to complete this topic HIB VACCINES Aged Out No longer eligi ble based on patient's age to complete this topic MENINGOCOCCAL VACCINES (ACWY) Aged Out No longer eligible based on patient's age to complete this topic MENINGOCOCCAL VACCINES (B) Aged Out N o longer eligible based on patient's age to complete this topic Medical Devices Not on file Insurance [employer] MEDEX SUPPLEMENT MEDICARE PART A & B BLUE CROSS MEDEX SUPPLEMENT MEDICARE PART A & B [employer] MEDEX SUPPLEMENT MEDICARE PART A & B [employer] MEDEX SUPPLEMENT MEDICARE PART A & B Member Subscriber Plan / Payer ( fective 2015-) Name:Syd Enrique Member ID:[id number] Relation to Subscriber:Self Name:Syd Enrique Subscriber ID:[id number] Payer ID:[id number] Group ID:Not on file Type:Medicare Address: [place] [phone] [employer] MEDEX SUPPLEMENT MEDICARE PART A & B [employer] MEDEX SUPPLEMENT MEDICARE PART A & B [employer] MEDEX SUPPLEMENT MEDICARE PART A & B [employer] MEDEX SUPPLEMENT MEDICARE PART A & B [employer] MEDEX SUPPLEMENT MEDICARE PART A & B Care Teams Rate Manager Relationship Specialty Start Date End Date Black Lewis MD [address] [place] [address] [place] [address] PCP - General Internal Medicine 06/08/21 Additional Source Comments The information contained in this document represents components of the legal health record. It is not the complete legal health record.[facility]
== END 2024-10-01 16:09 | disposition home or self-care (01) ==
LOC: HO.HMCH 14:53
DX: M25.512 Pain in left shoulder (principal); E78.00 Pure hypercholesterolemia, unspecified; D12.8 Benign neoplasm of rectum; B00.52 Herpesviral keratitis; N40.0 Benign prostatic hyperplasia without lower urinary tract symptoms

== ENCOUNTER → 2024-10-01 14:52 | Outpatient (BNVA) | payer MEDICARE, SELFPAY | PROVIDERS: PCP Internal Medicine | DX: N40.1 Benign prostatic hyperplasia with lower urinary tract symptoms (principal); B00.52 Herpesviral keratitis; M25.512 Pain in left shoulder; D12.8 Benign neoplasm of rectum; E78.00 Pure hypercholesterolemia, unspecified; R35.1 Nocturia; Z86.0100 Personal history of colon polyps, unspecified | CPT/HCPCS: 96127; 99202 ==

== ENCOUNTER 2024-10-08 08:34 | Outpatient (REF) | payer MEDICARE, SELFPAY ==
--- OUTSIDE RECORDS SUMMARY | 2024-10-08 08:49 | XMS_ITS | Clinical Summary ---
Author Organization [facility] Address [address] [place] [id number] Phone Care Team Providers Care Kitchenwhere Maker Name Role Phone Black Lewis MD Primary Care Provider [phone] Medications No known medications Active Problems No [...] topic Medical Devices Not on file Insurance [employer] MEDEX SUPPLEMENT MEDICARE PART A & B BLUE [employer]OSS MEDEX SUPPLEMENT MEDICARE PART A & B [employer] MEDEX SUPPLEMENT MEDICARE PART A & B [employer]EX SUPPLEMENT MEDICARE PART A & B Member Subscriber Plan / Payer ( fective 2015-) Name:Syd Enrique Member ID:[id number] Relation to Subscriber:Self Name:Syd Enirque Subscriber ID:[id number] Payer ID:[id number] Group ID:Not on file Type:Medicare Address: [place] [id number] [employer] MEDEX SUPPLEMENT MEDICARE PART A & B [employer] MEDEX SUPPLEMENT MEDICARE PART A & B [employer] MEDEX SUPPLEMENT MEDICARE PART A & B [employer] MEDEX SUPPLEMENT MEDICARE PART A & B [employer] MEDEX SUPPLEMENT MEDICARE PART A & B Care Teams Kitchenwhere Maker Relationship Specialty Start Date End Date Black Lewis MD [address] [place] [address] [place] [address] PCP - General Internal Medicine 06/08/21 Additional Source Comments The information contained in this document represents components of the legal health record. It is not the complete legal health record.[facility]
[2024-10-08 10:42] LABS: Alanine Aminotransferase 22 U/L (0-40); Albumin Level 4.1 g/dL (3.5-5.0); Alkaline Phosphatase 61 U/L (39-117); Anion Gap 10 (12-20); Aspartate Amino Transferase 26 U/L (5-37); Blood Urea Nitrogen 17 mg/dL (9-16); Calcium 9.1 mg/dL (8.4-10.2); Carbon Dioxide 32 mmol/L (22-29); Chloride 105 mmol/L (96-108); Cholesterol 225 mg/dL (<200); Estimated Glomerular Filt Rate > 60; HDL Cholesterol 51 mg/dL (>40); Potassium 5.0 mmol/L (3.3-5.1); Sodium 142 mmol/L (135-145); Total Protein 7.0 g/dL (6.5-8.0); Triglycerides 66 mg/dL (<150)
[2024-10-08 10:57] LABS: PSA,Total (Free>4and<10) 1.46 ng/mL (0.00-4.00)
== END 2024-10-08 08:35 | disposition home or self-care (01) ==
LOC: HO.LAB 08:34
DX: Z00.00 Encounter for general adult medical examination without abnormal findings (principal); N40.1 Benign prostatic hyperplasia with lower urinary tract symptoms; R35.1 Nocturia; Z12.5 Encounter for screening for malignant neoplasm of prostate; Z13.6 Encounter for screening for cardiovascular disorders
CPT/HCPCS: 36415; 80053; 80061; 82306; 84153

== ENCOUNTER 2024-10-10 08:46 | Outpatient (AMB) | payer MEDICARE, SELFPAY ==
--- NOTE | 2024-10-10 08:51 | MHC.OFFVIS ---
Vital Signs 10/10/24 08:53 Height 6 ft Weight 171 lb BMI 23.2 Intake Visit Reasons: Lt RTC 09/27/24 DR Intake Note: Syd is a 73 year old right hand dominant male who presents today for a post operative visit after undergoing a left rotator cuff repair, DOS 09/27/[address] Hardy. Patient reports he is doing well, he has no concerns. States discontinued oxycodone due to side effects. He uses ibuprofen as needed. Allergies latex (LATEX) Allergy (Mild, Verified 10/10/24 08:56) skin redness with extended use of latex gloves tamsulosin Adverse Reaction (Severe, Verified 10/10/24 08:56) Dizziness Medication List - Last Reconciled 10/10/24 by Christian Hernandez PA-C ibuprofen 200 mg PO Q6H PRN valacyclovir 1,000 mg PO BID PRN HPI HPI Lt RTC 09/27/24 DR: Details: 73-year-old gentleman returns to the office today status post left rotator cuff repair on 09/27/[address] Hardy. Patient comes in today wearing his sling. He states he has made an appointment with physical therapy. No concerns today. [facility] Medical History COVID-19 BPH (benign prostatic hyperplasia) Arthritis Snores Multiple adenomatous polyps Surgical History Hx of arthroscopy of shoulder Hx of colonoscopy Family History Mother No problems noted. Father No problems noted. Social History Household Members: Spouse Housing: House Are you a primary child care cook to a significant other at home: No Do you presently have visiting nurse or other home services: No 75 years or older and lives alone: No Alcohol intake: current Alcohol intake frequency: 0-2 drinks per day Patient Tobacco Use Status: Never used Tobacco e-Cigarette/Vaping Use: Never Used Second Hand Smoke Exposure: No service: No Current occupational status: retired Cognitive needs: No Hearing needs: No Vision needs: Yes Review of Systems Const All systems reviewed & are unremarkable except as noted in HPI and below Physical Exam Vital Signs: BMI result Body Mass Index 23.2 Extrem Other: Left shoulder incision clean dry and intact. No erythema or drainage. Sensation and pulses intact. Results Reviewed Results Reviewed: Brief Operative Note Date of Service: 09/27/24 Pre-op diagnosis: Left shoulder impingement syndrome, left shoulder acromioclavicular joint arthritis, left shoulder rotator cuff tear Post-op diagnosis: same Procedure: Left shoulder arthroscopic distal clavicle excision, left shoulder arthroscopic acromioplasty, left shoulder mini open rotator cuff repair Implants: 1 suture anchor ([employer] Twinfix anchor with #2 Ultrabraid suture) Surgeon: Jean Carlos Hardy MD Assessment & Plan Assessment & Plan (1) Rotator cuff insufficiency of left shoulder: Code(s): M25.312 - Other instability, left shoulder Category: Medical Plan: Sutures removed today Steri-Strips applied. The patient can discontinue the use of the sling when he is in a controlled environment. I stressed the importance of avoiding overhead motions and no lifting more than a cell phone. He did make an appointment to begin PT at [facility]. An order was sent. He will see us back in [address] Hardy, sooner if needed. Coding Level of Care Code Global (43090) Diagnoses Rotator cuff insufficiency of left shoulder M25.312
[2024-10-10 08:53] VITALS: BMI 23.2
--- OUTSIDE RECORDS SUMMARY | 2024-10-10 09:09 | XMS_ITS | Clinical Summary ---
Author Organization [facility] Address [address] [place] [address] Phone Care Team Providers Care Cafeteria Aide Name Role Phone Black Lewis MD Primary Care Provider [phone] Medications No known medications Active Problems No [...] topic Medical Devices Not on file Insurance [employer] MEDEX SUPPLEMENT MEDICARE PART A & B BLUE CROSS MEDEX SUPPLEMENT MEDICARE PART A & B [employer] SU[employer] MEDICARE PART A & B [employer] SU[employer] MEDICARE PART A & B Member Subscriber Plan / Payer ( fective 2015-) Name:Syd Enrique Member ID:[id number] Relation to Subscriber:Self Name:Syd Enrique Subscriber ID:[id number] Payer ID:[id number] Group ID:Not on file Type:Medicare Address: [place] [id number] [employer] MEDEX SUPPLEMENT MEDICARE PART A & B [employer] SU[employer]MENT MEDICARE PART A & B [employer]EX SU[employer]MENT MEDICARE PART A & B [employer] MED[employer] SUPPLEMENT MEDICARE PART A & B [employer] SU[employer]MENT MEDICARE PART A & B Care Teams Cafeteria Aide Relationship Specialty Start Date End Date Black Lewis MD [address] [place] [address] [place] [address] PCP - General Internal Medicine 06/08/21 Additional Source Comments The information contained in this document represents components of the legal health record. It is not the complete legal health record.[facility]
== END 2024-10-10 09:13 | disposition home or self-care (01) ==
LOC: HO.HOS 08:50
PROVIDERS: Visit Provider Physician Assistant
DX: M25.312 Other instability, left shoulder (principal)
CPT/HCPCS: 99024

== ENCOUNTER → 2024-10-10 08:46 | Outpatient (BNVA) | payer MEDICARE, SELFPAY | PROVIDERS: Visit Provider Physician Assistant | DX: M25.312 Other instability, left shoulder (principal); Z98.890 Other specified postprocedural states | CPT/HCPCS: 99212 ==

== ENCOUNTER 2024-10-23 09:26 | Outpatient (AMB) | payer MEDICARE, SELFPAY ==
[2024-10-23 09:37] VITALS: BP 132/66; PULSE 64; RESP 18; TEMP 36.1; O2SAT 94; BMI 23.5
--- NOTE | 2024-10-23 09:37 | A.OFFPC_ITS ---
Vital Signs 10/23/24 09:37 Height 6 ft Weight 173 lb BMI 23.5 BP 132/66 Blood Pressure Location Lt brachial Position Sitting Respiration 18 Pulse 64 Pulse Source Pulse Oximeter Temp 96.9 F Temp Source Oral Pulse Oximetry (%) 94 Oxygen Delivery Method Room Air Intake Visit Reasons: annual exam/trung DR Lewis Link Trainer Operator Required: No Accompanied by: Self / Same As Patient Allergies latex (LATEX) Allergy (Mild, Verified 10/23/24 09:47) skin redness with extended use of latex gloves tamsulosin Adverse Reaction (Severe, Verified 10/23/24 09:47) Dizziness Medication List - Last Reconciled 10/23/24 by RADHA Pham ibuprofen 200 mg PO Q6H PRN valacyclovir 1,000 mg PO BID PRN Tobacco use date assessed: 10/23/24 Fall risk assessment: No Falls in past year Last assessed Fall Risk: 10/23/24 Dental Screening Dental Screen Date: 10/23/24 Did you have a dental visit in the last 12 months?: Yes Did you have a dental problem in the last 6 months where you did not have access to dental care?: No Was dental information given to patient?: Patient has dentist HPI annual exam/trung DR Lewis HPI Details The patient is presenting for annual physical Dentist:up to date Eye: up to date Snellen: Right: Left: Corrected vision: yes, glasses STI screening: Colonoscopy: polyps removal, question going when to repeat at the end of this year Pap Smer: PHQ-9: Flu: up to date COVID: x6 Tdap: due today Diet: mostly vegetarian, do eat fish and chicken Exercise: Active lifestyle The patient is a 73-year-old male presenting with hyperlipidemia and shoulder pain. The hyperlipidemia was noted to have increased, and the patient follows a mostly vegetarian diet with occasional consumption of chicken, fish, and dairy, particularly cheese, which may have contributed to the elevated cholesterol levels. The patient has reduced physical activity due to shoulder pain, which has limited his ability to swim and perform yoga, potentially impacting his cholesterol levels. The shoulder pain began after surgery on the left shoulder, which occurred three weeks prior to the visit. The pain has restricted his exercise routine, including swimming and yoga, which he used to perform regularly. The patient has started biking as an alternative form of exercise to manage his physical activity levels. The patient also has a lipoma, which was identified 10 years ago and has slightly increased in size. It is not currently bothersome, and surgical removal was discussed as an option if it becomes problematic. Tinnitus is another condition the patient experiences, for which he has consulted with specialists, but no effective treatment has been identified. The patient has Dupuytren's contracture, which is in the early stages and not currently causing significant functional impairment. He is aware of the potential progression and surgical intervention options if it worsens. Preventative care measures discussed include a colonoscopy, which is due later this year, and a tetanus vaccination, which was administered during the visit. [facility] Medical History COVID-19 BPH (benign prostatic hyperplasia) Arthritis Snores Multiple adenomatous polyps Surgical History Hx of arthroscopy of shoulder Hx of colonoscopy Family History Mother No problems noted. Father No problems noted. Social History Household Members: Spouse Housing: House Are you a primary nonfarm animal caretaker to a significant other at home: No Do you presently have visiting nurse or other home services: No 75 years or older and lives alone: No Alcohol intake: current Alcohol intake frequency: 0-2 drinks per day Patient Tobacco Use Status: Never used Tobacco e-Cigarette/Vaping Use: Never Used Second Hand Smoke Exposure: No service: No Current occupational status: retired Cognitive needs: No Hearing needs: No Vision needs: Yes Questionnaire PHQ-9 Over the last 2 weeks, how often have you been bothered by any of the following problems? 1. Little interest or pleasure in doing things: not at all 2. Feeling down, depressed, or hopeless: not at all 3. Trouble falling or staying asleep, or sleeping too much: not at all 4. Feeling tired or having little energy: not at all 5. Poor appetite or overeating: not at all 6. Feeling bad about yourself - or that you are a failure or have let yourself or your family down: not at all 7. Trouble concentrating on things, such as reading the newspaper or watching television: not at all 8. Moving or speaking so slowly that other people could have noticed. Or the opposite - being so fidgety or restless that you have been moving around a lot more than usual: not at all 9. Thoughts that you would be better off or of hurting yourself in some way: not at all Total score: 0 Depression Screening Interpretation: Negative Depression Screening Done: Yes Source: Developed by Drs. Miguelito Partida, Anamaria Torres, Bacilio Berkowitz and colleagues, with an educational dalton from [employer]. Thrive Questionnaire Date Thrive assessed: 10/23/24 I am a: Patient What is your living situation today?: I have a steady place to live Within the past 12 months, did the food you bought not last and you didn't have the money to get more?: Never true Within the past 12 months, did you worry whether your food would run out before you got money to buy more?: Never true Do you have trouble paying for medicines?: No Do you have trouble getting transportation to medical appointments?: No Do you have trouble paying your heating and electricity bill?: No Do you have trouble taking care of your child, family member or friend?: No Do you have trouble with day-to-day activities such as bathing, preparing meals, shopping, managing finances, etc.?: No Are you currently unemployed and looking for a job?: No Are you interested in more education?: No Please select the resources that you would like help with: None THRIVE Score: 0 AUDIT C Alcohol Use Questionnaire (AUDIT-C) 1. How often do you have a drink containing alcohol?: 4 or more times a week 2. How many drinks containing alcohol do you have on a typical day when you are drinking?: 1 or 2 3. How often do you have six or more drinks on one occasion?: Never Total Score: 4 HEMALATHA-7 AMB Questionnaire HEMALATHA-7 Date HEMALATHA - 7 assessed: 10/23/24 Feeling nervous, anxious, or on edge: 0 = Not at all Not being able to stop or control worryin = Not at all Worrying too much about different things: 0 = Not at all Trouble relaxin = Not at all Being so restless that it is hard to sit still: 0 = Not at all Becoming easily annoyed or irritable: 0 = Not at all Feeling afraid as if something awful might happen: 0 = Not at all Total HEMALATHA-7 score (0-4 normal; 5-9 mild; 10-14 moderate; 15-21 severe): 0 Source: Developed by Drs. Miguelito Partida, Anamaria Torres, Bacilio Berkowitz and colleagues, with an educational dalton from [employer]. Review of Systems Const Denies headache(s) Eyes Denies loss of vision ENT Denies vertigo, Denies dizziness, Denies headache(s), Reports tinnitus (Chronic) and Denies sore throat Card Denies chest pain, Denies leg edema and Denies lightheadedness Resp Denies cough, Denies hemoptysis and Denies wheezing GI Denies abdominal pain, Denies melena, Denies constipation, Denies diarrhea and Denies vomiting Denies dysuria, Denies urinary frequency and Denies urinary urgency Musc Reports arthralgias (Left shoulder), Denies joint swelling, Denies numbness, Reports stiffness (mild stiffness in fingers) and Denies tingling Skin/Breast Reports skin swelling (Left side of abdomen lipoma) Neuro Denies Abnormal speech present, Denies behavioral changes, Denies vertigo, Denies dizziness, Denies headache(s), Denies loss of vision, Denies memory loss, Denies numbness and Denies tingling Psych Denies anxiety, Denies behavioral changes, Denies depression, Denies memory loss and Denies panic attacks Dax/Lymph Denies easy bleeding and Denies easy bruising Aller/Immun Denies wheezing Physical exam (Primary Care) Vital Signs: Last Vital Signs Temp 96.9 F 10/23/24 09:37 Pulse 64 10/23/24 09:37 Resp 18 10/23/24 09:37 BP 132/66 10/23/24 09:37 Pulse Ox 94 10/23/24 09:37 Oxygen Delivery Method Room Air 10/23/24 09:37 BMI result Body Mass Index 23.5 Tobacco/Smoking Status: Tobacco use Status Tobacco use date assessed 10/23/24 10/23/24 09:43 Patient Tobacco Use Status Never used Tobacco 10/23/24 09:43 e-Cigarette/Vaping Use Never Used 10/23/24 09:43 PHQ-9: PHQ-9 Score PHQ-9: Total score 0 10/23/24 21:59 Depression Screening Interpretation: Negative Thrive Assessment: Date of Thrive Assessment Date Thrive assessed 10/23/24 10/23/24 09:43 Const General: healthy appearing, no acute distress, alert and awake Nutritional Appearance: well nourished Orientation/consciousness: oriented to person, oriented to place and oriented to time HENMT Ears: TM's normal bilaterally General nose exam: Normal nasal mucous membranes and turbinates present Eyes Conjunctivae: conjunctivae normal Sclerae: sclerae normal Pupils: Equal, round and reactive pupils present Neck Neck: Yes no lymphadenopathy and Yes no JVD Thyroid: Thyroid normal Carotids: no bruits Resp Effort & Inspection: normal respiratory effort and not tachypneic Auscultation: no crackles, no rales, no rhonchi and no wheezes Cardio Rate: regular rate Rhythm: regular rhythm Heart sounds: no murmurs and normal S1 and S2 GI Palpation (GI): Soft to palpation, nontender, no hepatomegaly and no splenomegaly Auscultation: normal bowel sounds General: Yes no CVA tenderness Back/Spine/Pelvis Back: no CVA tenderness Skin General skin exam: dry skin Lesions: lesion noted (left side of abdomen lipoma) Neuro General: oriented to person, oriented to place, oriented to time and CN's II-XI intact bilaterally Cranial nerves: Yes Equal, round and reactive pupils present Speech: No Abnormal speech present Gait exam (Neuro): Normal gait present Motor exam (neuro): no tremor noted Deep tendon reflexes (DTR's): Right triceps reflex intensity grade: 2+, Left triceps reflex intensity grade: 2+, Rt Biceps (C5, C6): 2+, Left biceps reflex intensity grade: 2+, Right brachioradialis reflex intensity grade: 2+, Left brachioradialis reflex intensity grade: 2+, Right patellar reflex intensity grade: 2+ and Left patellar reflex intensity grade: 2+ Extrem Right upper extremity: full ROM and Extremity exam: right hand (early formation of dupuytrens) Left upper extremity: full ROM, shoulder/upper arm (Limited range of motion, +weight restriction, status post surgery) and hand (early formation of dupuytrens) Right lower extremity: full ROM; no edema Left lower extremity: full ROM; no edema Psych Mental Status: mental status grossly normal Speech and movement: Normal speech and movement present Affect: normal affect Attitude: cooperative Thought process: Normal thought process present Immunizations Tenivac (PF) 5 Lf unit-2 Lf unit/0.5 mL intramuscular syringe Performing Provider: RADHA Pham [facility] Administered by: PATRICK Sin on 10/23/24 10:10 Dose Route Admin Location Dispensed Lot Number Expiration Date NDC Movement Education Specialist 0.5 mL IM Right Deltoid 0.5 mL [id number] 05/28/26 [id number] [employer] Total Dispensed Waste 0.5 mL 0 % VIS Given Date VIS Provided VIS Publication Date 10/23/24 Single Vaccine 20 Eligibility Eligibility Date Funding Source Not [facility] Eligible 10/23/24 Private Results Reviewed Results Reviewed: Laboratory Tests 09/20/24 10/08/24 11:08 08:43 WBC 5.3 Sodium 142 Potassium 5.0 Chloride 105 Carbon Dioxide 32 H Anion Gap 10 L BUN 17 H Creatinine 0.85 Estimated GFR > 60 Fasting Glucose 97 Calcium 9.1 Total Bilirubin 0.9 AST 26 ALT 22 Alkaline Phosphatase 61 Total Protein 7.0 Albumin 4.1 Triglycerides 66 Cholesterol 225 H LDL Cholesterol, Calc 161 H HDL Cholesterol 51 Total PSA 1.46 25-OH Vitamin D Total 58.0 Coding Level of Care Code Est Pt Prev Care >65y(04607) Diagnoses Physical exam Z00.00 Left shoulder pain, unspecified chronicity M25.512 Chronicity: unspecified Multiple adenomatous polyps D36.9 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 Patient had a colonoscopy in 2022 with a removal of 5 polyps. Recommendation for this to be repeated in 2 years, due at the end of this year. Tdap vaccination given in office today. (2) Left shoulder pain: Code(s): M25.512 - Pain in left shoulder Category: Medical Qualifiers: Chronicity: unspecified Qualified Code(s): M25.512 - Pain in left shoulder Plan: Left shoulder rotator cuff surgery recently. Patient have stiffness and limited range of motion in left shoulder. Restricted from region above head, weight restriction as well. Patient pain is minimal. Follow up with Orthopedics as scheduled. (3) Multiple adenomatous polyps: Comment: Colon polyps 2017, colon polyps 2022 Code(s): D36.9 - Benign neoplasm, unspecified site Category: Medical Plan: Follow up colonoscopy is due at the end of this year. Five polyps were removed in 2022. (4) Labyrinthine disorder: Comment: take rx; call in 2 days if no change; 20 min examining chart and patient and documenting Code(s): H81.90 - Unspecified disorder of vestibular function, unspecified ear Category: Medical Qualifiers: Laterality: bilateral Qualified Code(s): H81.93 - Unspecified disorder of vestibular function, bilateral Plan: Patient has chronic tinnitus. He was told by ENT that there is nothing that could be done for his situation. Reports that he has learned to live with it. (5) HLD (hyperlipidemia): Code(s): E78.5 - Hyperlipidemia, unspecified Category: Medical Qualifiers: Hyperlipidemia type: pure hypercholesterolemia Qualified Code(s): E78.00 - Pure hypercholesterolemia, unspecified Plan: Total cholesterol increased for 183 to 225, LDL increased from from 130 to 161 Discussed lifestyle modifications including dietary changes and physical activity We will recheck lipid panel in 4 months (6) Lipoma: Code(s): D17.9 - Benign lipomatous neoplasm, unspecified Category: Medical Qualifiers: Lipoma location: trunk Qualified Code(s): D17.1 - Benign lipomatous neoplasm of skin and subcutaneous tissue of trunk Plan: Lipoma to left side of abdomen. Discussed with the patient possibly surgical removal/referral. The patient reports that this is not bothersome at this time and would like to hold off for now. (7) Dupuytren contracture: Code(s): M72.0 - Palmar fascial fibromatosis [Dupuytren] Category: Medical Plan: Early dupuytrens contractor in both hands, but primarily left hand. No limitation to bilateral hands at this time. The patient is aware that he would need surgery of this progressses Orders: Orders Lipid Panel 4 Months D36.9 - Benign neoplasm, unspecified site, E78.5 - Hyperlipidemia, unspecified, H81.90 - Unspecified disorder of vestibular funct ion, unspecified ear TSH reflex Free T4 4 Months D36.9 - Benign neoplasm, unspecified site, E78.5 - Hyperlipidemia, unspecified, H81.90 - Unspecified disorder of vestibular function, unspecified ear Comprehensive [place]. Panel Fast 4 Months D36.9 - Benign neoplasm, unspecified site, E78.5 - Hyperlipidemia, unspecified, H81.90 - Unspecified disorder of vestibular function, unspecified ear Td Immunization Today Z23 - Encounter for immunization
--- OUTSIDE RECORDS SUMMARY | 2024-10-23 10:00 | XMS_ITS | Clinical Summary ---
Author Organization [facility] Address [address] [place] [id number] Phone Care Team Providers Care Clerical Investigator Name Role Phone Black Lewis MD Primary Care Provider [phone] Medications No known medications Active Problems No [...] topic Medical Devices Not on file Insurance [email or web address] MEDEX SUPPLEMENT MEDICARE PART A & B BLUE CROSS MEDEX SUPPLEMENT MEDICARE PART A & B [email or web address] MEDEX SUPPLEMENT MEDICARE PART A & B [email or web address] MEDEX SUPPLEMENT MEDICARE PART A & B Member Subscriber Plan / Payer ( fective 2015-) Name:Syd Enrique Member ID:[id number] Relation to Subscriber:Self Name:Syd Enrique Subscriber ID:[id number] Payer ID:[id number] Group ID:Not on file Type:Medicare Address: [place] [id number] [email or web address] MEDEX SUPPLEMENT MEDICARE PART A & B [email or web address] MEDEX SUPPLEMENT MEDICARE PART A & B [email or web address] MEDEX SUPPLEMENT MEDICARE PART A & B [email or web address] MEDEX SUPPLEMENT MEDICARE PART A & B [email or web address] MEDEX SUPPLEMENT MEDICARE PART A & B Care Teams Clerical Investigator Relationship Specialty Start Date End Date Black Lewis MD [address] [place] [address] [place] [address] PCP - General Internal Medicine 06/08/21 Additional Source Comments The information contained in this document represents components of the legal health record. It is not the complete legal health record.[facility]
== END 2024-10-23 10:21 | disposition home or self-care (01) ==
LOC: HO.HMCH 09:26
DX: Z00.00 Encounter for general adult medical examination without abnormal findings (principal); M25.512 Pain in left shoulder; D36.9 Benign neoplasm, unspecified site; H81.93 Unspecified disorder of vestibular function, bilateral; E78.00 Pure hypercholesterolemia, unspecified; D17.1 Benign lipomatous neoplasm of skin and subcutaneous tissue of trunk; M72.0 Palmar fascial fibromatosis [Dupuytren]; Z23 Encounter for immunization

== ENCOUNTER → 2024-10-23 09:26 | Outpatient (BNVA) | payer MEDICARE, SELFPAY | PROVIDERS: PCP Internal Medicine | DX: Z00.00 Encounter for general adult medical examination without abnormal findings (principal); M25.512 Pain in left shoulder; D17.9 Benign lipomatous neoplasm, unspecified; H93.19 Tinnitus, unspecified ear; M72.0 Palmar fascial fibromatosis [Dupuytren]; D36.9 Benign neoplasm, unspecified site; H81.93 Unspecified disorder of vestibular function, bilateral; E78.00 Pure hypercholesterolemia, unspecified; D17.1 Benign lipomatous neoplasm of skin and subcutaneous tissue of trunk; Z23 Encounter for immunization | CPT/HCPCS: 90471; 90714; 96127; 99397 ==

== ENCOUNTER 2024-11-06 11:40 | Outpatient (AMB) | payer MEDICARE, SELFPAY ==
--- NOTE | 2024-11-06 11:48 | A.OFFVIS_ITS ---
Vital Signs 11/06/24 11:52 Height 6 ft Weight 173 lb BMI 23.5 Intake Visit Reasons: PO-Lt RTC 09/27/24 Intake Note: Syd is a 73 year old male who presents with complaints of mild intermittent discomfort in his left shoulder after undergoing left shoulder rotator cuff repair surgery on 09/27/2024. He continues to go to physical therapy at [facility]. He does take Tylenol and ibuprofen which gives him fairly good relief. Allergies latex (LATEX) Allergy (Mild, Verified 11/06/24 11:52) skin redness with extended use of latex gloves tamsulosin Adverse Reaction (Severe, Verified 11/06/24 11:52) Dizziness oxycodone Adverse Reaction (Intermediate, Verified 11/06/24 11:54) Hallucinations Medication List - Last Reconciled 11/06/24 by Jean Carlos Hardy MD ibuprofen 200 mg PO Q6H PRN valacyclovir 1,000 mg PO BID PRN PFSH Medical History (Updated 10/28/24 @ 04:02 by RADHA Pham) Herpes simplex keratitis COVID-19 BPH (benign prostatic hyperplasia) Arthritis Snores Multiple adenomatous polyps Surgical History Hx of arthroscopy of shoulder Hx of colonoscopy Family History Mother No problems noted. Father No problems noted. Social History Household Members: Spouse Housing: House Are you a primary care technician to a significant other at home: No Do you presently have visiting nurse or other home services: No 75 years or older and lives alone: No Alcohol intake: current Alcohol intake frequency: 0-2 drinks per day Patient Tobacco Use Status: Never used Tobacco e-Cigarette/Vaping Use: Never Used Second Hand Smoke Exposure: No service: No Current occupational status: retired Cognitive needs: No Hearing needs: No Vision needs: Yes Physical Exam Vital Signs: BMI result Body Mass Index 23.5 Extrem Other: Left shoulder examination shows that the surgical incisions are well healed, no erythema, almost full passive range of motion when compared to his right shoulder, minimal discomfort with resisted internal or external rotation Assessment & Plan Assessment & Plan (1) Rotator cuff insufficiency of left shoulder: Code(s): M25.312 - Other instability, left shoulder Category: Medical Plan Mr. Enrique continues to do well after undergoing left shoulder rotator cuff repair surgery on 09/27/2024. He will continue going to formal physical therapy for now. We will hold off on active lifting and strengthening until he is 8 weeks out from surgery. He will contact me prior to his follow-up appointment in 2 months should any questions or concerns arise. Feel free to call me at any time should questions regarding his orthopedic management arise. Orders: Orders PT Evaluation and Treatment Today M25.312 - Other instability, left shoulder Medications: New ibuprofen 600 mg PO Q8H PRN 90 tabs 3RF pain Coding Level of Care Code Global (61040) Diagnoses Rotator cuff insufficiency of left shoulder M25.312
[2024-11-06 11:52] VITALS: BMI 23.5
--- OUTSIDE RECORDS SUMMARY | 2024-11-06 14:53 | XMS_ITS | Clinical Summary ---
Author Organization [facility] Address [address] [place] [address] Phone Care Team Providers Care Supervisor Color Making Name Role Phone Black Lewis MD Primary Care Provider [phone] Medications No known medications Active Problems No [...] 2000 ZOSTER VACCINES (1 of 2) 2000 INFLUENZA VACCINE (#1) 2024 COVID-19 VACCINE (1 - 2023-2 5 season) 2024 RSV VACCINE (1 - 1-dose 75+ series) [...] topic Medical Devices Not on file Insurance [employer] MEDEX SUPPLEMENT MEDICARE PART A & B [employer] SUPPLEMENT MEDICARE PART A & B [employer] MED[employer] SUPPLEMENT MEDICARE PART A & B [employer] MED[employer] SUPPLEMENT MEDICARE PART A & B [employer] MED[employer] SUPPLEMENT MEDICARE PART A & B [employer] MED[employer] SUPPLEMENT MEDICARE PART A & B [employer] MED[employer] SUPPLEMENT MEDICARE PART A & B Member Subscriber Plan / Payer (Ef fective 2015-Present) Name:Syd Enrique Member ID:[id number] Relation to Subscriber:Self Name:Nathansonia Syd Subscriber ID:[id number] Payer ID:[id number] Group ID:Not on file Type:Medicare Address: [employer] [address] [place] [phone] [employer] MEDEX SUPPLEMENT MEDICARE PART A & B [employer] MED[employer] SUPPLEMENT MEDICARE PART A & B Care Teams Supervisor Color Making Relationship Specialty Start Date End Date Black Lewis MD [address] [place] [address] [place] [address] PCP - General Internal Medicine 06/08/21 Additional Source Comments The information contained in this document represents components of the legal health record. It is not the complete legal health record.[facility]
== END 2024-11-06 12:10 | disposition home or self-care (01) ==
LOC: HO.HOS 11:41
PROVIDERS: Visit Provider Orthopaedic Surgery
DX: M25.312 Other instability, left shoulder (principal)
CPT/HCPCS: 99024

== ENCOUNTER → 2024-11-06 11:40 | Outpatient (BNVA) | payer MEDICARE, SELFPAY | PROVIDERS: Visit Provider Orthopaedic Surgery | DX: Z47.89 Encounter for other orthopedic aftercare (principal); Z98.890 Other specified postprocedural states | CPT/HCPCS: 99212 ==

== ENCOUNTER 2024-12-31 08:26 | Outpatient (AMB) | payer MEDICARE, SELFPAY ==
--- OUTSIDE RECORDS SUMMARY | 2024-12-31 08:47 | XMS_ITS | Clinical Summary ---
Author Organization [facility] Address [address] [place] [address] Phone Care Team Providers Care Dial Maker Name Role Phone Black Lewis MD Primary Care Provider [phone] Medications No known medications Active Problems No [...] VACCINE (#1) 2024 COVID-19 VACCINE (1 - 2024-2 6 season) 2024 RSV VACCINE (1 - 1-dose [...] topic Medical Devices Not on file Insurance [employer] MEDEX SUPPLEMENT MEDICARE PART A & B [employer] MED[employer] SUPPLEMENT MEDICARE PART A & B [employer] MEDEX SUPPLEMENT MEDICARE PART A & B [employer] MEDEX SUPPLEMENT MEDICARE PART A & B [employer] MEDEX SUPPLEMENT MEDICARE PART A & B [employer] MEDEX SUPPLEMENT MEDICARE PART A & B [employer] MEDEX SUPPLEMENT MEDICARE PART A & B Member Subscriber Plan / Payer (Ef fective 2015-Present) Name:Syd Enrique Member ID:[id number] Relation to Subscriber:Self Name:Nathansonia Syd Subscriber ID:[id number] Payer ID:[id number] Group ID:Not on file Type:Medicare Address: [employer] [address] [place] [phone] [employer] MEDEX SUPPLEMENT MEDICARE PART A & B [employer] MEDEX SUPPLEMENT MEDICARE PART A & B Care Teams Dial Maker Relationship Specialty Start Date End Date Black Lewis MD [address] [place] [address] [place] [address] PCP - General Internal Medicine 06/08/21 Additional Source Comments The information contained in this document represents components of the legal health record. It is not the complete legal health record.[facility]
--- NOTE | 2024-12-31 08:49 | A.OFFVIS_ITS ---
Intake Visit Reasons: 6m/PVR Intake Note: Patient is present for m/PVR Urology Medication:none Antibiotic Allergy:tamsulosin Blood Thinner:none PVR:0ml Central Office Operator Required: No Allergies latex (LATEX) Allergy (Mild, Verified 12/31/24 08:50) skin redness with extended use of latex gloves tamsulosin Adverse Reaction (Severe, Verified 12/31/24 08:50) Dizziness oxycodone Adverse Reaction (Intermediate, Verified 12/31/24 08:50) Hallucinations HPI Comments Details: Syd is a pleasant male. He is a patient of Dr. Dillard. He is seen for the following urologic conditions - epididymal cyst - nocturia Six-month follow-up prostate issues PVR low Has had bilateral shoulder replacement Would like to try secondary medication. Alfuzosin prescribed Bladder ultrasound scheduled Lower urinary tract symptoms Initial presentation with nocturia 1-2, weakness of stream Tamsulosin closed dizziness, finasteride decline in libido PSA 11/17 0.8, 07/19 0.9 Epididymal cyst Left-sided epididymal cyst Approximately 2-3 cm on exam Minimal bother currently Reassurance provided regarding natural history [facility] Medical History Herpes simplex keratitis COVID-19 BPH (benign prostatic hyperplasia) Arthritis Snores Multiple adenomatous polyps Surgical History Hx of arthroscopy of shoulder Hx of colonoscopy Family History Mother No problems noted. Father No problems noted. Social History Household Members: Spouse Housing: House Are you a primary healthcare interpreter to a significant other at home: No Do you presently have visiting nurse or other home services: No 75 years or older and lives alone: No Alcohol intake: current Alcohol intake frequency: 0-2 drinks per day Patient Tobacco Use Status: Never used Tobacco e-Cigarette/Vaping Use: Never Used Second Hand Smoke Exposure: No service: No Current occupational status: retired Cognitive needs: No Hearing needs: No Vision needs: Yes Review of Systems Const Denies chills and Denies fever(s) Card Reports no additional complaints and Denies syncope Resp Denies cough GI Denies abdominal pain and Denies heartburn Reports as per HPI and Denies change in libido Neuro Denies syncope Psych Denies change in libido Endo Denies change in libido Physical Exam Const General: cooperative, healthy appearing, comfortable and no acute distress Orientation/consciousness: patient oriented x3 HEENT Face and sinus: Yes normal facial exam Mouth: moist mucous membranes Neck Neck: Yes normal visual inspection, Yes full ROM and Yes trachea midline Chest Chest palpation & inspection: normal inspection of the chest Resp Effort & Inspection: normal respiratory effort, able to speak in complete sentences and no respiratory distress GI Inspection: Yes normal to inspection Back/Spine/Pelvis Cervical Spine: normal cervical lordosis Thoracic/Lumbar Spine: thoracic and lumbar spine normal to inspection Skin General skin exam: no rashes or lesions noted Neuro General: patient oriented x3, gait normal, tone normal and moves all extremities Extrem General: Yes normal to inspection and Yes capillary refill normal Office Procedures Post Void Residual Post Residual Void Post Void Residual (PVR): 0 00236-Bply Void Residual by ultrasound Results AMB Urinalysis, Automated UA Leukoctes 0 Delmi/uL Last Edit by Nadia Baez [facility] on 12/31/24 08:50 UA Nitrite Negative Last Edit by Nadia Baez [facility] on 12/31/24 08:50 UA Urobilinogen 0.2 mg/dL Last Edit by Nadia Baez [facility] on 12/31/24 08:50 UA Protein 15 mg/dL Last Edit by Nadia Baez [facility] on 12/31/24 08:50 UA pH 6.0 Last Edit by Nadia Baez [facility] on 12/31/24 08:50 UA Blood 0 Billy/uL Last Edit by Nadia Baez [facility] on 12/31/24 08:50 UA Specific Lillian 1.010 Last Edit by Nadia Baez [facility] on 12/31/24 08:5 0 UA Ketone Negative Last Edit by Nadia Baez [facility] on 12/31/24 08:50 UA Bilirubin 0 mg/dL Last Edit by Nadia Baez [facility] on 12/31/24 08:50 UA Glucose 500 mg/dL Last Edit by Nadia Baez [facility] on 12/31/24 08:50 AMB Urinalysis, Automated UA Leukoctes 0 Delmi/uL Last Edit by Nadia Baez [facility] on 12/31/24 08:52 UA Nitrite Negative Last Edit by Nadia Colon, [facility] on 12/31/24 08:52 UA Urobilinogen 0.2 mg/dL Last Edit by Nadia Colon, [facility] on 12/31/24 08:52 UA Protein 0 mg/dL Last Edit by Nadia Colon, [facility] on 12/31/24 08:52 UA pH 6.0 Last Edit by Nadia Colon, [facility] on 12/31/24 08:52 UA Blood 0 Billy/uL Last Edit by Nadia Colon, [facility] on 12/31/24 08:52 UA Specific Lillian 1.010 Last Edit by Nadia Colon, [facility] on 12/31/24 08:5 2 UA Ketone Negative Last Edit by Nadia Colon, [facility] on 12/31/24 08:52 UA Bilirubin 0 mg/dL Last Edit by Nadia Colon, [facility] on 12/31/24 08:52 UA Glucose 0 mg/dL Last Edit by Nadia Colon, [facility] on 12/31/24 08:52 Results Reviewed Results Reviewed: Laboratory Last Values Urine pH (Auto) 6.0 12/31/24 08:51 Specific Lillian (Auto) 1.010 12/31/24 08:51 Urine Protein (Auto) 0 mg/dL 12/31/24 08:51 Glucose (UA)(Auto) 0 mg/dL 12/31/24 08:51 Urine Ketones (Auto) Negative 12/31/24 08:51 Urine Blood (Auto) 0 Billy/uL 12/31/24 08:51 Urine Nitrite (Auto) Negative 12/31/24 08:51 Urine Bilirubin (Auto) 0 mg/dL 12/31/24 08:51 Urine Urobilinogen (Auto) 0.2 mg/dL 12/31/24 08:51 Leukocyte Esterase (Auto) 0 Delmi/uL 12/31/24 08:51 Assessment & Plan Assessment & Plan (1) Nocturia associated with benign prostatic hyperplasia: Code(s): N40.1 - Benign prostatic hyperplasia with lower urinary tract symptoms; R35.1 - Nocturia Category: Medical (2) Prostate hypertrophy: Code(s): N40.0 - Benign prostatic hyperplasia without lower urinary tract symptoms Category: Medical Plan Start alfuzosin Bladder ultrasound Three-month follow-up Orders: Orders US bladder 2 Months N40.0 - Benign prostatic hyperplasia without lower urinary tract symptoms Medications: New alfuzosin ER 10 mg PO DAILY 30 tabs 1RF 30 days N40.0 - Benign prostatic hyperplasia without lower urinary tract symptoms Patient Instructions: This note is constructed using voice recognition software. While every effort has been made to ensure accuracy metal annealer errors may have been included. Imaging studies, laboratory and physical exam results were discussed and reviewed in detail. No major barriers to patient understanding were identified. An opportunity to ask questions regarding the treatment plan was provided. All questions were answered. The patient expressed understanding and agreement with the above treatment plan. The patient is aware they should contact our office by phone for worsening of their current condition or the appearance of new urologic symptoms. Compliance is encouraged with any medications and followup testing that is ordered. It is a privilege to participate in the urologic care of your patient. If you have any questions or concerns regarding treatment for the above conditions, or other urologic issues, please do not hesitate to contact me. The office telephone contact is [phone]. Sincerely, Dr Esa Mae MD, [facility] - Urology Compassionate Specialist Care for the Genitourinary System Coding Level of Care Code Est Pt Level 4 (20121) Complex EM visit Add On G2211 Diagnoses Nocturia associated with benign prostatic hyperplasia N40.1; R35.1 Prostate hypertrophy N40.0 CPT Codes Post Residual Void - PVR CPT Code: 68854-Xnho Void Residual by ultrasound ([id number])
== END 2024-12-31 09:30 | disposition home or self-care (01) ==
LOC: HO.HUSH 08:26
PROVIDERS: Visit Provider Urology
DX: N40.1 Benign prostatic hyperplasia with lower urinary tract symptoms (principal); R35.1 Nocturia
CPT/HCPCS: 99214

== ENCOUNTER → 2024-12-31 08:26 | Outpatient (BNVA) | payer MEDICARE, SELFPAY | PROVIDERS: Visit Provider Urology | DX: N40.1 Benign prostatic hyperplasia with lower urinary tract symptoms (principal); R35.0 Frequency of micturition | CPT/HCPCS: 51798; 99212 ==

== ENCOUNTER 2025-01-02 10:44 | Outpatient (AMB) | payer MEDICARE, SELFPAY ==
--- NOTE | 2025-01-02 10:54 | A.OFFVIS_ITS ---
Vital Signs 01/02/25 10:55 Height 6 ft Weight 173 lb BMI 23.5 Intake Visit Reasons: PO-Lt RTC 09/27/24 DR-two month follow up Intake Note: Syd is a 74 year old male who presents with complaints of mild intermittent discomfort in his left shoulder after undergoing left shoulder rotator cuff repair surgery on 09/27/2024. He continues with his range of motion exercises. H yue denies any fevers or chills. He has returned to swimming for exercise. Allergies latex (LATEX) Allergy (Mild, Verified 12/31/24 08:50) skin redness with extended use of latex gloves tamsulosin Adverse Reaction (Severe, Verified 12/31/24 08:50) Dizziness oxycodone Adverse Reaction (Intermediate, Verified 12/31/24 08:50) Hallucinations Medication List - Last Reconciled 01/02/25 by Jean Carlos Hardy MD alfuzosin ER 10 mg PO DAILY 30 days ibuprofen 200 mg PO Q6H PRN ibuprofen 600 mg PO Q8H PRN valacyclovir 1,000 mg PO BID PRN PFSH Medical History Herpes simplex keratitis COVID-19 BPH (benign prostatic hyperplasia) Arthritis Snores Multiple adenomatous polyps Surgical History Hx of arthroscopy of shoulder Hx of colonoscopy Family History Mother No problems noted. Father No problems noted. Social History Household Members: Spouse Housing: House Are you a primary campground caretaker to a significant other at home: No Do you presently have visiting nurse or other home services: No 75 years or older and lives alone: No Alcohol intake: current Alcohol intake frequency: 0-2 drinks per day Patient Tobacco Use Status: Never used Tobacco e-Cigarette/Vaping Use: Never Used Second Hand Smoke Exposure: No service: No Current occupational status: retired Cognitive needs: No Hearing needs: No Vision needs: Yes Physical Exam Vital Signs: BMI result Body Mass Index 23.5 Extrem Other: Left shoulder examination shows full range of motion when compared to his right shoulder, 5/5 strength with supraspinatus testing, minimal discomfort with range of motion, no instability Assessment & Plan Assessment & Plan (1) Left shoulder pain: Code(s): M25.512 - Pain in left shoulder Category: Medical Qualifiers: Chronicity: unspecified Qualified Code(s): M25.512 - Pain in left shoulder Plan Mr. Enrique continues to do very well after undergoing left shoulder rotator cuff repair surgery on 09/27/2024. He will continue with his home stretching program. The do's and don'ts of lifting were discussed at length with the patient. Will contact me prior to his follow-up appointment in 3 months should any questions or concerns arise. Feel free to call me at any time should questions regarding his orthopedic management arise. I spent 21 minutes in reviewing the patient's records and imaging studies, seeing the patient and documenting in the medical record. Coding Level of Care Code Est Pt Level 3 (76794) Complex EM visit Add On G2211 Diagnoses Left shoulder pain, unspecified chronicity M25.512 Chronicity: unspecified
[2025-01-02 10:55] VITALS: BMI 23.5
--- OUTSIDE RECORDS SUMMARY | 2025-01-02 13:02 | XMS_ITS | Clinical Summary ---
Author Organization [facility] Address [address] [place] [address] Phone Care Team Providers Care Commercial Green Building Architect Name Role Phone Black Lewis MD Primary Care Provider [phone] Medications No known medications Active Problems No [...] topic Medical Devices Not on file Insurance [employer] MEDEX SUPPLEMENT MEDICARE PART A & B [employer] MEDEX SUPPLEMENT MEDICARE PART A & B [employer] MEDEX SUPPLEMENT MEDICARE PART A & B [employer] MEDEX SUPPLEMENT MEDICARE PART A & B [employer] MEDEX SUPPLEMENT MEDICARE PART A & B [employer] MEDEX SUPPLEMENT MEDICARE PART A & B [employer] MEDEX SUPPLEMENT MEDICARE PART A & B Member Subscriber Plan / Payer (Ef fective 2015-Present) Name:Syd Enrique Member ID:[id number] Relation to Subscriber:Self Name:Nathansonia Syd Subscriber ID:[id number] Payer ID:[id number] Group ID:Not on file Type:Medicare Address: [employer] [address] [place] [phone] [employer] MEDEX SUPPLEMENT MEDICARE PART A & B [employer] MEDEX SUPPLEMENT MEDICARE PART A & B Care Teams Commercial Green Building Architect Relationship Specialty Start Date End Date Black Lewis MD [address] [place] [address] [place] [address] PCP - General Internal Medicine 06/08/21 Additional Source Comments The information contained in this document represents components of the legal health record. It is not the complete legal health record.[facility]
== END 2025-01-02 11:20 | disposition home or self-care (01) ==
LOC: HO.HOS 10:45
PROVIDERS: Visit Provider Orthopaedic Surgery
DX: M25.512 Pain in left shoulder (principal)
CPT/HCPCS: 99213; G2211

== ENCOUNTER → 2025-01-02 10:44 | Outpatient (BNVA) | payer MEDICARE, SELFPAY | PROVIDERS: Visit Provider Orthopaedic Surgery | DX: M25.512 Pain in left shoulder (principal) | CPT/HCPCS: 99212 ==

== ENCOUNTER 2025-02-10 07:54 | Outpatient (REF) | payer MEDICARE, SELFPAY ==
[2025-02-10 11:24] LABS: Resp Syncy Virus RNA Qual PCR NEGATIVE (Negative); SARS COV2 PCR INHOUSE NEGATIVE (Negative)
== END 2025-02-10 07:55 | disposition home or self-care (01) ==
LOC: HO.LAB 07:54
PROVIDERS: Nurse Practitioner Family
DX: J06.9 Acute upper respiratory infection, unspecified (principal); R09.89 Other specified symptoms and signs involving the circulatory and respiratory systems
CPT/HCPCS: 87637; 99212

== ENCOUNTER 2025-02-10 07:54 | Outpatient (AMB) | payer MEDICARE, SELFPAY ==
[2025-02-10 07:58] VITALS: BP 110/72; PULSE 61; TEMP 36.8; O2SAT 98; BMI 24.7
--- NOTE | 2025-02-10 07:58 | AM.OFFWIN_ITS ---
Intake Vital Signs 02/10/25 07:58 Height 6 ft Weight 182 lb BMI 24.7 BP 110/72 Blood Pressure Location Rt brachial Position Sitting Pulse 61 Pulse Source Pulse Oximeter Temp 98.3 F Temp Source Oral Pulse Oximetry (%) 98 Oxygen Delivery Method Room Air Intake Visit Reasons: EP pt went to [place] has a cold for a week Intake Note: Patient presents c/o sore throat, nasal congestion, chest congestion x2 weeks. Patient Tobacco Use Status: Never used Tobacco Allergies latex (LATEX) Allergy (Mild, Verified 02/10/25 08:01) skin redness with extended use of latex gloves tamsulosin Adverse Reaction (Severe, Verified 02/10/25 08:01) Dizziness oxycodone Adverse Reaction (Intermediate, Verified 02/10/25 08:01) Hallucinations HPI HPI Comments History of Present Illness Details 74-year-old male presents to the walk-in clinic with complaints of upper respiratory symptoms for approximately 2 weeks. Patient reports sore throat, nasal congestion, and chest congestion. Symptoms began while traveling in [place] on vacation and have persisted since returning home. He has tried multiple [id number] medications with minimal relief. Denies fever, chills, shortness of breath, chest pain, wheezing, hemoptysis, nausea, vomiting, or diarrhea. No known sick contacts reported. [facility] Medical History (Updated 02/10/25 @ 08:14 by Jackie Hill NP) Acute respiratory disease Herpes simplex keratitis COVID-19 BPH (benign prostatic hyperplasia) Arthritis Snores Multiple adenomatous polyps Surgical History Hx of arthroscopy of shoulder Hx of colonoscopy Family History Mother No problems noted. Father No problems noted. Social History Household Members: Spouse Housing: House Are you a primary resident care assistant to a significant other at home: No Do you presently have visiting nurse or other home services: No 75 years or older and lives alone: No Alcohol intake: current Alcohol intake frequency: 0-2 drinks per day Patient Tobacco Use Status: Never used Tobacco e-Cigarette/Vaping Use: Never Used Second Hand Smoke Exposure: No service: No Current occupational status: retired Cognitive needs: No Hearing needs: No Vision needs: Yes Review of Systems Const All systems reviewed & are unremarkable except as noted in HPI and below Physical Exam Vital Signs: Last Vital Signs Temp 98.3 F 02/10/25 07:58 Pulse 61 02/10/25 07:58 BP 110/72 02/10/25 07:58 Pulse Ox 98 02/10/25 07:58 Oxygen Delivery Method Room Air 02/10/25 07:58 BMI result Body Mass Index 24.7 Const General: no acute distress Nutritional Appearance: well nourished Orientation/consciousness: patient oriented x3 HEENT Head: Yes normocephalic Ears: external ears normal and TM's normal bilaterally General nose exam: Nasal discharge present Face and sinus: Yes sinuses nontender Mouth: moist mucous membranes Throat: Yes uvula midline Resp Effort & Inspection: normal respiratory effort and able to speak in complete sentences Auscultation: clear to auscultation bilaterally, no crackles, no rales, no rhonchi and no wheezes Cardio Heart sounds: S1 normal heart sound present and S2 normal heart sound present Neuro General: patient oriented x3 Assessment & Plan Assessment & Plan (1) Acute respiratory disease: Code(s): J06.9 - Acute upper respiratory infection, unspecified Plan: COVID-19, Influenza, and/or Strep testing. Supportive care encouraged Increase oral fluids and rest Continue symptomatic management with OTC medications as tolerated (e.g., saline nasal spray, guaifenesin, acetaminophen as needed) Ordered Zpack. Orders: Orders SARS-CoV2/FLU/RSV Today R09.89 - Other specified symptoms and signs involving the circulatory and respiratory systems Medications: New azithromycin 500 mg PO DAILY 3 tabs 0RF 3 days J06.9 - Acute upper respiratory infection, unspecified Coding Level of Care Code Est Pt Level 4 (85823) Diagnoses Acute respiratory disease J06.9 Time Spent (min) 20
--- OUTSIDE RECORDS SUMMARY | 2025-02-10 07:58 | XMS_ITS | Clinical Summary ---
Author Organization [facility] Address [address] [place] [id number] Phone Care Team Providers Care Media Relations Coordinator Name Role Phone Black Lewis MD Primary Care Provider [phone] Medications No known medications Active Problems No [...] topic Medical Devices Not on file Insurance [employer] MEDEX SUPPLEMENT MEDICARE PART A & B [employer] MEDEX SUPPLEMENT MEDICARE PART A & B [employer] MEDEX SUPPLEMENT MEDICARE PART A & B [employer] MEDEX SUPPLEMENT MEDICARE PART A & B [employer] MEDEX SUPPLEMENT MEDICARE PART A & B [employer] MEDEX SUPPLEMENT MEDICARE PART A & B [employer] MEDEX SUPPLEMENT MEDICARE PART A & B Member Subscriber Plan / Payer (Ef fective 2015-Present) Name:Syd Enrique Member ID:[id number] Relation to Subscriber:Self Name:Nathansonia Syd Subscriber ID:[id number] Payer ID:[id number] Group ID:Not on file Type:Medicare Address: [employer] [address] [place] [phone] [employer] MEDEX SUPPLEMENT MEDICARE PART A & B [employer] MEDEX SUPPLEMENT MEDICARE PART A & B Care Teams Media Relations Coordinator Relationship Specialty Start Date End Date Black Lewis MD [address] [place] [address] [place] [address] PCP - General Internal Medicine 06/08/21 Additional Source Comments The information contained in this document represents components of the legal health record. It is not the complete legal health record.[facility]
== END 2025-02-10 08:41 | disposition home or self-care (01) ==
PROVIDERS: Visit Provider Nurse Practitioner Family
DX: J06.9 Acute upper respiratory infection, unspecified (principal)

== ENCOUNTER 2025-02-17 08:55 | Day surgery (SDC) | payer MEDICARE, SELFPAY ==
--- NOTE | 2025-02-12 14:44 | HO.ANESPROP2 ---
Documented by User: Katalina Umanzor NP 02/12/25 14:52 HPI - Anesthesia Eval Consult details Narrative: 74 yr old male for colonoscopy s/p rotator arthroscopy 09/28/24 with GA, ETT 7.5 PMFSH Active Problems Active Problems: All Active Problems Acute respiratory disease (Acute) Prostate hypertrophy (Acute) Herpes simplex keratitis (Acute) Dupuytren contracture (Acute) Lipoma (Acute) HLD (hyperlipidemia) (Acute) Right rotator cuff tear (Acute) Left shoulder pain (Acute) Rotator cuff insufficiency of left shoulder (Acute) Impingement of right shoulder (Acute) Right shoulder pain (Acute) Tubulovillous adenoma polyp of rectum (Acute) Cecal polyp (Acute) Encounter for screening colonoscopy (Acute) Nocturia associated with benign prostatic hyperplasia (Acute) Physical exam (Acute) Skin lesion (Acute) Scrotal cyst (Acute) Headache (Acute) Sinusitis (Acute) Labyrinthine disorder (Acute) Multiple adenomatous polyps (Acute) Past Medical History Medical History HLD (hyperlipidemia) Acute respiratory disease Herpes simplex keratitis BPH (benign prostatic hyperplasia) Arthritis Snores Multiple adenomatous polyps Family History Family History Mother No problems noted. Father No problems noted. Family history of problems with anesthesia: No Surgical History Surgical History Hx of arthroscopy of shoulder Hx of colonoscopy History of Problems with Anesthesia: No Social History Social History Household Members: Spouse Housing: House Are you a primary certified caregiver to a significant other at home: No Do you presently have visiting nurse or other home services: No Alcohol intake: current Alcohol intake frequency: 0-2 drinks per day Patient Tobacco Use Status: Never used Tobacco e-Cigarette/Vaping Use: Never Used Second Hand Smoke Exposure: No Use of substances other than those prescribed or required for medical reasons: No Advance Directives: No Advance Directives Information Provided: Yes service: No Current occupational status: retired Cognitive needs: No Hearing needs: No Vision needs: Yes Meds Allergies Allergy/AdvReac Type Severity Reaction Status Date / Time latex (LATEX) Allergy Mild skin Verified 02/10/25 08:01 redness with extended use of latex gloves tamsulosin AdvReac Severe Dizziness Verified 02/10/25 08:01 oxycodone AdvReac Intermediate Hallucinati Verified 02/10/25 08:01 ons Home Medications ?Medication ?Instructions ?Recorded ?Confirmed ?Last Taken ?Type ibuprofen 200 mg tablet 200 mg PO Q6H PRN Pain 09/20/24 01/02/25 Unknown History valacyclovir 1 gram tablet 1,000 mg PO BID PRN Outbreak 09/20/24 02/13/25 Unknown History Exam Pertinent Lab Results Pertinent Lab Results: Laboratory Tests 09/20/24 10/08/24 11:08 08:43 WBC 5.3 RBC 4.86 Hgb 14.5 Hct 44.0 Plt Count 210 Sodium 142 Potassium 5.0 BUN 17 H Creatinine 0.85 Narrative Narrative: EKG 08/2024 Vent. Rate : 59 BPM Atrial Rate : 59 BPM P-R Int : 198 ms QRS Dur : 94 ms QT Int : 402 ms P-R-T Axes : 70 47 53 degrees QTcB Int : 397 ms Sinus bradycardia Otherwise normal ECG When compared with ECG of 29-May-2018 15:38, No significant change was found Assessment and Plan Final Anesthetic Review Family History of Problems with Anesthesia: No History of Problems with Anesthesia: No Documented by User: Irma Kulkarni MD 02/17/25 10:52 [facility] Past Medical History Medical History HLD (hyperlipidemia) Acute respiratory disease Herpes simplex keratitis BPH (benign prostatic hyperplasia) Arthritis Snores Multiple adenomatous polyps Family History Family History Mother No problems noted. Father No problems noted. Surgical History Surgical History Hx of arthroscopy of shoulder Hx of colonoscopy Social History Social History Household Members: Spouse Housing: House Are you a primary certified caregiver to a significant other at home: No Do you presently have visiting nurse or other home services: No Alcohol intake: current Alcohol intake frequency: 0-2 drinks per day Patient Tobacco Use Status: Never used Tobacco e-Cigarette/Vaping Use: Never Used Second Hand Smoke Exposure: No Use of substances other than those prescribed or required for medical reasons: No Advance Directives: No Advance Directives Information Provided: Yes service: No Current occupational status: retired Cognitive needs: No Hearing needs: No Vision needs: Yes Meds Allergies Allergy/AdvReac Type Severity Reaction Status Date / Time latex (LATEX) Allergy Mild skin Verified 02/10/25 08:01 redness with extended use of latex gloves tamsulosin AdvReac Severe Dizziness Verified 02/10/25 08:01 oxycodone AdvReac Intermediate Hallucinati Verified 02/10/25 08:01 ons Home Medications ?Medication ?Instructions ?Recorded ?Confirmed ?Last Taken ?Type ibuprofen 200 mg tablet 200 mg PO Q6H PRN Pain 09/20/24 01/02/25 Unknown History valacyclovir 1 gram tablet 1,000 mg PO BID PRN Outbreak 09/20/24 02/13/25 Unknown History Exam Airway Mallampati Class: II TM Dist: <=3cm Neck ROM: Limited Heart: rrr Lungs: cta Assessment and Plan Assessment Anesthesia Assessment: Anesthesia Plan Discussed and Chart Reviewed Final Anesthetic Review NPO: Yes ASA Class: II Final Preanesthetic Review: No Changes in Pt Med Stat, Meds/Allgs Chart Reviewed, Consent Obtained/Reviewed and Anes Risks/Benef Reviewed Patient Risk: Intermediate Procedure Risk: Low Anesthetic Plan Anesthetic Plan: MAC: and Agree w/ Assess. and Plan Disposition: Standard PACU
[2025-02-13 13:54] VITALS: BMI 23.5
--- NOTE | 2025-02-17 08:38 | MHC.SHP ---
Pre-Procedural Eval Section A - 24 Hr Update-Section A only Date of Service: 02/17/25 The patient is an INPATIENT: No The patient has been examined within 24 hours of the surgical procedure. The History & Physical has been completed within 30 days and I have reviewed it.: No Section B - Complete if H&P > 30 days Chief Complaint: Personal history of colon polyps, unspecified Relevant Family History (Specify if Yes): No Relevant Social History: None Present Medications: see Short Stay Collaborative assessment Medical History: Significant History (Hyperlipidemia, BPH) History of Previous Operations: Relevant previous surgery/procedure and date(s) (Hx of colonoscopy) Allergies: Allergies Allergy/AdvReac Type Severity Reaction Status Date / Time latex (LATEX) Allergy Mild skin Verified 02/10/25 08:01 redness with extended use of latex gloves tamsulosin AdvReac Severe Dizziness Verified 02/10/25 08:01 oxycodone AdvReac Intermediate Hallucinati Verified 02/10/25 08:01 ons Review of Systems Sugical H&P ROS: Negative: Constitution, Cardiovascular, Respiratory and Gastrointestinal Exam Surgical H&P Exam: Normal: Heart, Normal: Lungs, Normal: Extremities and Normal: Abdomen Plan Diagnosis/Plan: Change (Proceed with colonoscopy) I have reviewed the history and physical and performed a pertinent physical examination on my patient. No changes have occurred unless specified. Time Spent With Patient Time: Total time managing care of this patient today ____ minutes.
[2025-02-17 09:12] VITALS: BMI 23.3
[2025-02-17 09:27] VITALS: BP 137/79; PULSE 57; RESP 16; TEMP 36.8; O2SAT 97
[2025-02-17] MEDS: Lactated Ringers 1,000 ML 100 ML IVCONT (09:28)
--- NOTE | 2025-02-17 12:11 | HO.OPN-COLON ---
Colonoscopy Operative Note Operative Note Date of Service: 02/17/25 Narrative: COLONOSCOPY TILL CECUM WITH BIOPSIES, SNARE POLYPECTOMY, SUBMUCOSAL INJECTION AND HEMOCLIP PLACEMENT Pre-op diagnosis: Surveillance for colon polyps. Post-op diagnosis:? Colon polyps, hemorrhoids Endoscopist:? Brianne Lombardo MD Anesthesia:?MAC Consent: Indications for the procedure and potential complications of bleeding, perforation, reaction to medications and missed diagnosis were discussed with the patient and informed consent was obtained. Instrument: Olympus CF H 190 L variable stiffness adult colonoscope Monitoring: Vital signs and clinical assessment, intermittent blood pressure monitoring, continuous EKG monitoring, Pulse oximetry and Carbon Dioxide monitoring were done throughout the procedure. Please see anesthesia flowsheet. Colon withdrawl time was 29 minutes. Procedure: The patient was placed in the left lateral decubitis position and pre-procedure medications were administered. After a digital rectal examination of the ano-rectum, the video colonoscope was inserted into the rectum and advanced through the colon to the cecum. The colonoscope was slowly withdrawn in a retrograde panoramic fashion and the colon mucosa was carefully examined including a retroflexed view of the rectum. Findings and interventions are described below. Procedure Difficulty: Colon was long and tortuous and there was some loop formation. Patient was placed in the supine position and LLQ pressure was applied to intubate the cecum Findings: Terminal Ileum: Not evaluated Cecum: Two 4-5 mm sessile polyps - removed with a cold snare and a cold biopsy Ascending Colon: A hemoclip seen next to the ICV with a 15 mm polyp/edematous folds at the base. Three 10-15 mm sessile polyps - raised with 2 cc of [place] and removed with a stiff hot snare Polyp was raised with 2 cc of [place] and removed with a stiff hot snare. Polypectomy site was closed with 1 hemoclip and polyp was retrieved with a Gage net. Transverse Colon: Normal Descending Colon: Normal Sigmoid Colon: Normal Rectum: Normal Ano-rectum: Moderate internal hemorrhoids Colon preparation: Good after some irrigation. [place] Bowel Preparation Scale Right colon; 2 Transverse colon: 2 Left colon; 2 (0 = Unprepared colon segment with mucosa not seen due to solid stool that cannot be cleared. 1 = Portion of mucosa of the colon segment seen, but other areas of the colon segment not well seen due to staining, residual stool and/or opaque liquid. 2 = Minor amount of residual staining, small fragments of stool and/or opaque liquid, but mucosa of colon segment seen well. 3 = Entire mucosa of colon segment seen well with no residual staining, small fragments of stool or opaque liquid) Impression and Post Procedure Diagnosis: Colonoscopy Findings: Six small to medium sized polyps were removed Moderate hemorrhoids on retroflexed exam. Plan: I will send a letter with biopsy results. Repeat Colonoscopy in 3 years if polyps are adenomatous and due to history of adenomatous colon polyps. Above findings were reviewed with the patient and relevant handouts were given and the discharge area. BIOPSIES SHOWED: A. Colon, cecal polyps: Tubular adenomas (2 pieces); negative for high-grade dysplasia and carcinoma. B. Colon, proximal ascending, polyps: Tubular adenoma (1 piece); negative for high-grade dysplasia and carcinoma, and sessile serrated lesion/polyp without dysplasia (1 piece), and 1 fragment of colonic mucosa with hyperplastic changes and thermal artifact. C. Colon, ileocecal valve, polyp: Benign inflammatory polyp. Letter sent to the patient with biopsy results. Patient was placed on the colonoscopy recall list for repeat colonoscopy in 3 years.
[2025-02-17 12:15] VITALS: BP 121/69; PULSE 58; RESP 20; TEMP 37; O2SAT 97
[2025-02-17 12:30] VITALS: BP 120/76; PULSE 55; RESP 18; TEMP 36.4; O2SAT 99
== END 2025-02-17 13:43 | disposition home or self-care (01) ==
PROVIDERS: Visit Provider Internal Medicine Gastroenterology
PROC: 0DJD8ZZ Inspection of Lower Intestinal Tract, Via Natural or Artificial Opening Endoscopic (ICD-10-PCS; CPT 45378; principal; 2025-02-17 10:30)
DX: Z12.11 Encounter for screening for malignant neoplasm of colon (principal); Z86.0101 Personal history of adenomatous and serrated colon polyps; K64.8 Other hemorrhoids; K51.40 Inflammatory polyps of colon without complications; D12.2 Benign neoplasm of ascending colon; D12.0 Benign neoplasm of cecum
CPT/HCPCS: 45380; 45385; 88305; J2003; J2704

== ENCOUNTER → 2025-02-17 08:55 | Outpatient (BNV) | payer MEDICARE, SELFPAY | PROVIDERS: Visit Provider Internal Medicine Gastroenterology | DX: Z12.11 Encounter for screening for malignant neoplasm of colon (principal); K63.5 Polyp of colon; K64.8 Other hemorrhoids | CPT/HCPCS: 45385 ==